=== PATIENT | male | born 1945 | race Caucasian/White ===

== ENCOUNTER 2022-12-06 18:13 | Inpatient (IN) | payer OTHER, SELFPAY ==
[2022-12-06 18:35] VITALS: BP 140/70; PULSE 63; RESP 18; TEMP 36.1; O2SAT 94
[2022-12-06] MEDS: hydrOXYzine HCL 25 MG TABLET PO (21:20)
[2022-12-06] MEDS: traZODone HCL 50 MG TABLET PO (21:20)
[2022-12-06] MEDS: Mirtazapine 15 MG TABLET 45 MG PO (22:41)
[2022-12-06] MEDS: QUEtiapine Fumarate 25 MG TABLET PO (22:41)
[2022-12-06 22:51] VITALS: BMI 29.0
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
--- NOTE | 2022-12-07 05:01 | PC.NURSE ---
HOSPITALIST CONSULT PLACED. TEXT SENT TO DR LARA FOR ROUTINE CONSULT.
[2022-12-07 09:02] VITALS: BP 128/62; PULSE 62; RESP 15; TEMP 36.3; O2SAT 92
[2022-12-07] MEDS: amLODIPine Besylate 10 MG TABLET PO (11:24)
[2022-12-07] MEDS: Cyanocobalamin (Vitamin B-12) 100 MCG TABLET PO (11:24)
[2022-12-07] MEDS: Clopidogrel Bisulfate 75 MG TABLET PO (11:24)
[2022-12-07 11:27] VITALS: BP 125/56; PULSE 68
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
[2022-12-07] MEDS: Metoprolol Succinate ER 100 MG TAB.ER.24H PO (15:05)
[2022-12-07 15:06] VITALS: BP 141/63; PULSE 66
[2022-12-07] MEDS: metFORMIN HCl 500 MG TABLET PO (17:52)
[2022-12-07 18:00] VITALS: BP 120/69; PULSE 74; RESP 18; TEMP 36.1; O2SAT 95
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
[2022-12-07 20:08] LABS: Glucose, Whole Blood 136 mg/dL (60-115)
[2022-12-07] MEDS: QUEtiapine Fumarate 25 MG TABLET 75 MG PO (20:35)
[2022-12-07] MEDS: Mirtazapine 15 MG TABLET 45 MG PO (20:35)
[2022-12-07] MEDS: Tamsulosin HCL 0.4 MG CAPSULE 0.8 MG PO (20:36)
[2022-12-07] MEDS: Salmeterol Xinafoate 50 MCG BLST.W.DEV 1 PUFF INHALE (20:38)
[2022-12-07] MEDS: Acetaminophen 325 MG TABLET 650 MG PO (22:30)
[2022-12-07] MEDS: hydrOXYzine HCL 25 MG TABLET PO (22:31)
[2022-12-07] MEDS: Melatonin 3 MG TABLET 9 MG PO (22:32)
[2022-12-08] MEDS: Omeprazole 40 MG CAPSULE.DR PO (06:41)
[2022-12-08 08:00] LABS: Glucose, Whole Blood 126 mg/dL (60-115)
[2022-12-08 08:17] LABS: Creatinine Clr Calc Pharmacy 56.7; Estimated Glomerular Filt Rate 56
[2022-12-08 08:50] VITALS: BP 115/55; PULSE 65; RESP 18; TEMP 36.4; O2SAT 93
[2022-12-08] MEDS: DULoxetine HCl 20 MG CAPSULE.DR PO (08:58)
[2022-12-08] MEDS: metFORMIN HCl 500 MG TABLET PO ×2 (08:58→16:35)
[2022-12-08] MEDS: Metoprolol Succinate ER 100 MG TAB.ER.24H PO (08:59)
[2022-12-08] MEDS: Clopidogrel Bisulfate 75 MG TABLET PO (08:59)
[2022-12-08] MEDS: amLODIPine Besylate 10 MG TABLET PO (09:00)
[2022-12-08] MEDS: Losartan Potassium 50 MG TABLET 100 MG PO (09:00)
[2022-12-08] MEDS: Cyanocobalamin (Vitamin B-12) 100 MCG TABLET PO (09:00)
[2022-12-08] MEDS: Atorvastatin Calcium 40 MG TABLET PO (09:00)
[2022-12-08] MEDS: Insulin Glargine,Hum.rec.anlog 100 UNIT/ML 10 ML VIAL 8 UNIT SUBCUT (09:01)
[2022-12-08] MEDS: Salmeterol Xinafoate 50 MCG BLST.W.DEV 1 PUFF INHALE ×2 (09:11→21:34)
[2022-12-08] MEDS: polyethylene glycoL 3350 17 GM POWD.PACK PO (09:15)
[2022-12-08] MEDS: Finasteride 5 MG TABLET PO (09:15)
--- NOTE | 2022-12-08 09:30 | HO.PSYCHPN ---
Subjective Subjective Date of Service: 12/08/22 Reason For Visit: Depression Subjective Notes: Conditional Voluntary Interim History: Patient seen and discussed. He repots same as usual when asked how he's doing. He has been adherent to medications. He is complaining of neuropathy pain and restlessness. Denies SI. He needed Melatonin and Hydroxyzine to sleep. Review of Systems Review of Systems General: No fevers, malaise, unintentional weight loss HEENT: No blurred vision, diplopia. No sore throat, nasal congestion, rhinorrhea, sinus pain, ear pain Cardiovascular: No chest pain, palpitations, or leg edema Respiratory: +sob, +cough. No wheezing GI: No abdominal pain, nausea, vomiting, diarrhea, constipation, melena, hematochezia : No dysuria, hematuria, increased urinary frequency, decreased urinary output MSK: No myalgia. +back pain Neuro: No headaches, weakness, paresthesias Skin: No rashes or lesions Mental Status Exam Mental Status Exam Patient Appearance: Appropriate Patient Orientation: Person, Place, Time and Situation Level of Consciousness: Awake, Appropriate and Alert Patient Behavior: Dependent, Cooperative, Restless (legs fidgeting), Anxious and Poor Eye Contact (intermittent) Mood Description: Depressed, Anxious and Sad Affect Description: Constricted, Depressed and Sad Ability to Follow Directions: Good Speech Pattern: Clear, Appropriate, Spontaneous Speech and Coherent Memory Description: Intact Diagnostics Vital Signs (24Hr): Vital Signs - 24 hr 12/07/22 11:27 12/07/22 15:06 12/07/22 18:00 Temperature 97 F Pulse Rate 68 66 74 Respiratory Rate 18 Blood Pressure 125/56 L 141/63 H 120/69 Pulse Oximetry 95 Oxygen Delivery Method Room Air BMI result Body Mass Index 29.0 Labs 12/08/22 07:40 Labs: Laboratory Results - last 48 hr 12/07/22 12/08/22 12/08/22 19:58 07:40 07:55 Creatinine 1.26 Estim Creat Clear Calc 56.7 Estimated GFR 56 POC Glucose 136 H 126 H Medications Medications Current Medications Acetaminophen (Acetaminophen 325 Mg Tablet) 650 mg PO Q6H PRN PRN Reason: Headache/Pain Mild Scale (1-3) Last Admin: 12/07/22 22:30 Dose: 650 mg Al Hydroxide/Mg Hydroxide (Magnesium Hydrox/Alum Hydrox 30 Ml Oral.Susp) 30 ml PO Q6H PRN PRN Reason: Heartburn/Nausea Albuterol Sulfate (Albuterol Sulfate 90 Mcg 8 Gm Inhaler) 2 puff INHALE RQ6H PRN PRN Reason: Wheezing and/or dyspnea Amlodipine Besylate (Amlodipine Besylate 10 Mg Tablet) 10 mg PO DAILY [facility]; Protocol Last Admin: 12/08/22 09:00 Dose: 10 mg Atorvastatin Calcium (Atorvastatin Calcium 40 Mg Tablet) 40 mg PO DAILY [facility] Last Admin: 12/08/22 09:00 Dose: 40 mg Clopidogrel Bisulfate (Clopidogrel Bisulfate 75 Mg Tablet) 75 mg PO DAILY [facility] Last Admin: 12/08/22 08:59 Dose: 75 mg Cyanocobalamin (Cyanocobalamin (Vitamin B-12) 100 Mcg Tablet) 100 mcg PO DAILY [facility] Last Admin: 12/08/22 09:00 Dose: 100 mcg Docusate Sodium (Docusate Sodium 100 Mg Capsule) 300 mg PO DAILY PRN PRN Reason: constipation Duloxetine HCl (Duloxetine Hcl 20 Mg Capsule.Dr) 20 mg PO DAILY [facility] Last Admin: 12/08/22 08:58 Dose: 20 mg Finasteride (Finasteride 5 Mg Tablet) 5 mg PO DAILY [facility] Last Admin: 12/08/22 09:15 Dose: 5 mg Glucose (Glucose Gel 15 Gm Gel..Gram.) 15 gm PO Q15M PRN; Protocol PRN Reason: per Hypoglycemia Standing Ord. Hydroxyzine HCl (Hydroxyzine Hcl 25 Mg Tablet) 25 mg PO Q6H PRN PRN Reason: Anxiety Last Admin: 12/07/22 22:31 Dose: 25 mg Dextrose (D10) 250 mls @ 750 mls/hr IV Q15M PRN; Protocol PRN Reason: per Hypoglycemia Standing Ord. Insulin Glargine (Insulin Glargine,Hum.Rec.Anlog 100 Unit/Ml 10 Ml Vial) 8 unit SUBCUT DAILY [facility] Last Admin: 12/08/22 09:01 Dose: 8 unit Insulin Human Lispro (Insulin Lispro 100 Unit/Ml 3 Ml Vial) 0 unit SUBCUT QIDACHS [facility]; Protocol Last Admin: 12/08/22 08:56 Dose: Not Given Lidocaine (Lidocaine 4 % Patch Adh..Patch) 1 patch TRANSDERMA DAILY [facility]; Protocol Last Admin: 12/08/22 09:03 Dose: Not Given Losartan Potassium (Losartan Potassium 50 Mg Tablet) 100 mg PO DAILY [facility]; Protocol Last Admin: 12/08/22 09:00 Dose: 100 mg Magnesium Hydroxide (Milk Of Magnesia 30 Ml Oral.Susp) 30 ml PO DAILY PRN PRN Reason: Constipation Melatonin (Melatonin 3 Mg Tablet) 9 mg PO BEDTIME PRN PRN Reason: Insomnia Last Admin: 12/07/22 22:32 Dose: 9 mg Metformin HCl (Metformin Hcl 500 Mg Tablet) 500 mg PO BIDWM [facility] Last Admin: 12/08/22 08:58 Dose: 500 mg Metoprolol Succinate (Metoprolol Succinate Er 100 Mg Tab.Er.24h) 100 mg PO DAILY [facility]; Protocol Last Admin: 12/08/22 08:59 Dose: 100 mg Mirtazapine (Mirtazapine 15 Mg Tablet) 45 mg PO BEDTIME [facility] Last Admin: 12/07/22 20:35 Dose: 45 mg Nicotine Polacrilex (Nicotine Polacrilex 2 Mg Gum) 4 mg BUCCAL Q2H PRN PRN Reason: Nicotine Cravings Omeprazole (Omeprazole 40 Mg Capsule.Dr) 40 mg PO DAILY@0630 [facility] Last Admin: 12/08/22 06:41 Dose: 40 mg Polyethylene Glycol (Polyethylene Glycol 3350 17 Gm Powd.Pack) 17 gm PO DAILY [facility] Last Admin: 12/08/22 09:15 Dose: 17 gm Quetiapine Fumarate (Quetiapine Fumarate 25 Mg Tablet) 75 mg PO BEDTIME [facility] Last Admin: 12/07/22 20:35 Dose: 75 mg Salmeterol Xinafoate (Salmeterol Xinafoate 50 Mcg Blst.W.Dev) 1 puff INHALE RBID [facility] Last Admin: 12/08/22 09:11 Dose: 1 puff Tamsulosin HCl (Tamsulosin Hcl 0.4 Mg Capsule) 0.8 mg PO BEDTIME [facility] Last Admin: 12/07/22 20:36 Dose: 0.8 mg Tiotropium [place] (Tiotropium [place] 18 Mcg Cap.W.Dev) 1 puff INHALE RDAILY [facility] Trazodone HCl (Trazodone Hcl 50 Mg Tablet) 50 mg PO BEDTIME MRX1 PRN PRN Reason: Insomnia Last Admin: 12/06/22 21:20 Dose: 50 mg Allergies Allergies Allergy/AdvReac Type Severity Reaction Status Date / Time iodine Allergy Swelling Verified 12/06/22 22:57 levofloxacin [From Levaquin] Allergy Joint Pain Verified 12/06/22 22:36 povidone-iodine Allergy Swelling Verified 12/06/22 22:57 [From Betadine] Assessment & Plan Assessment & Plan (1) Depression, major, severe recurrence: Status: Acute Code(s): F33.2 - Major depressive disorder, recurrent severe without psychotic features Assessment and Plan: 77 yo male with history of recurrent depression admitted with suicidal ideation with a plan to access firearms to kill himself. He has been struggling with medical issues, housing, difficulty navigating social needs and medical conditions due to illiteracy. His Cymbalta was discontinued due to Low Na+ but that didn't resolve after discontinuation. Plan Admit to geripsychiatry unit. CV 15 min checks Milieu therapy Collaterals Restart Cymbalta and titrate as tolerated. Patient agrees. Discharge planning. 12/08: Start GBP 100 mg TID targeting peripheral neuropathy Reason for continued inpatient stay Substantial Risk for: harm to self, rapid decompensation and med/psych decompensation Time Spent With Patient Time: Total time managing care of this patient today ____ minutes.
[2022-12-08] MEDS: Insulin Lispro 100 UNIT/ML 3 ML VIAL SUBCUT (11:34)
[2022-12-08] MEDS: Clotrimazole 1 % Cream 15 GM TUBE 1 APPL TOPICAL (15:37)
[2022-12-08] MEDS: Gabapentin 100 MG CAPSULE PO ×2 (15:37→21:21)
[2022-12-08 16:40] LABS: Glucose, Whole Blood 129 mg/dL (60-115)
[2022-12-08 16:40] LABS: Glucose, Whole Blood 184 mg/dL (60-115)
[2022-12-08 18:00] VITALS: BP 120/65; PULSE 66; RESP 18; TEMP 36.1; O2SAT 97
[2022-12-08] MEDS: Melatonin 3 MG TABLET 9 MG PO (21:19)
[2022-12-08] MEDS: QUEtiapine Fumarate 25 MG TABLET 75 MG PO (21:20)
[2022-12-08] MEDS: hydrOXYzine HCL 25 MG TABLET PO (21:21)
[2022-12-08] MEDS: Tamsulosin HCL 0.4 MG CAPSULE 0.8 MG PO (21:22)
[2022-12-08] MEDS: Mirtazapine 15 MG TABLET 45 MG PO (21:22)
[2022-12-09] MEDS: Omeprazole 40 MG CAPSULE.DR PO (05:53)
[2022-12-09 07:44] LABS: Glucose, Whole Blood 131 mg/dL (60-115)
[2022-12-09] MEDS: Insulin Glargine,Hum.rec.anlog 100 UNIT/ML 10 ML VIAL 8 UNIT SUBCUT (08:21)
[2022-12-09] MEDS: Cyanocobalamin (Vitamin B-12) 100 MCG TABLET PO (08:24)
[2022-12-09] MEDS: metFORMIN HCl 500 MG TABLET PO ×2 (08:24→16:38)
[2022-12-09] MEDS: amLODIPine Besylate 10 MG TABLET PO (08:24)
[2022-12-09] MEDS: Clopidogrel Bisulfate 75 MG TABLET PO (08:24)
[2022-12-09] MEDS: Losartan Potassium 50 MG TABLET 100 MG PO (08:24)
[2022-12-09] MEDS: Metoprolol Succinate ER 100 MG TAB.ER.24H PO (08:24)
[2022-12-09] MEDS: Gabapentin 100 MG CAPSULE PO ×3 (08:24→20:55)
[2022-12-09] MEDS: DULoxetine HCl 20 MG CAPSULE.DR PO (08:24)
[2022-12-09] MEDS: Atorvastatin Calcium 40 MG TABLET PO (08:24)
[2022-12-09] MEDS: Finasteride 5 MG TABLET PO (08:25)
[2022-12-09] MEDS: polyethylene glycoL 3350 17 GM POWD.PACK PO (08:28)
[2022-12-09] MEDS: Salmeterol Xinafoate 50 MCG BLST.W.DEV 1 PUFF INHALE ×2 (08:40→20:54)
[2022-12-09] MEDS: Lidocaine 4 % Patch ADH..PATCH 1 PATCH TRANSDERMA (08:40)
[2022-12-09 08:43] VITALS: BP 110/52; PULSE 87; RESP 18; TEMP 35.8; O2SAT 96
[2022-12-09 11:24] LABS: Glucose, Whole Blood 162 mg/dL (60-115)
[2022-12-09] MEDS: Insulin Lispro 100 UNIT/ML 3 ML VIAL SUBCUT ×2 (11:43→21:05)
--- NOTE | 2022-12-09 12:40 | MHC.CLN ---
Addendum entered by Angella Blanco RD 12/09/22 14:25: DIET CHANGED TO REGULAR CONSISTENCY PER MD. Original Note: NUTRITION DIET=REGULAR, NDD3 CONSISTENCY. PATIENT STATED THAT TOP DENTURES DON'T FIT WELL AND NO TEETH/DENTURES ON BOTTOM. DISPLEASED WITH LUNCH TODAY. ALERTED NURSE THAT PATIENT WANTED REGULAR SOUP AND A SANDWICH. STATED, I'LL STARVE TO IF DOESN'T GET THAT. FOLLOW FOR DIET TOLERANCE AND INTAKE.
[2022-12-09] MEDS: Clotrimazole 1 % Cream 15 GM TUBE 1 APPL TOPICAL ×2 (13:19→20:57)
--- NOTE | 2022-12-09 13:39 | HO.PSYCHPN ---
Subjective Subjective Date of Service: 12/09/22 Reason For Visit: Depression Subjective Notes: Conditional Voluntary Interim History: The nursing staff reported the patient had been very dysphoric, with passive suicidal ideation but able to contract for safety. The occupational therapist reported that he scored 18/30 on the Alligator but he is easily treated. The clinical social worker reported the [facility] facility does not want him back. On interview the patient reports that his feeling depressed we discussed options and content agreed to continue with medications. He is able to contract for safety he Mental Status Exam Mental Status Exam Patient Appearance: Appropriate Patient Orientation: Person and Situation Level of Consciousness: Awake and Appropriate Patient Behavior: Guarded and Passive Mood Description: Withdrawn Affect Description: Constricted and Depressed Patient Cognition Impaired: Yes Ability to Follow Directions: Good Speech Pattern: Impoverished Hallucinations: None Delusions: Not Present Thought Process: Linear Thought Content: positive for [place] and positive for Circumstantial Judgement: Fair Diagnostics Vital Signs (24Hr): Vital Signs - 24 hr 12/08/22 18:00 12/09/22 08:43 Temperature 96.9 F 96.5 F L Pulse Rate 66 87 Respiratory Rate 18 18 Blood Pressure 120/65 110/52 L Pulse Oximetry 97 96 Oxygen Delivery Method Room Air Room Air BMI result Body Mass Index 29.0 Labs 12/08/22 07:40 Labs: Laboratory Results - last 48 hr 12/07/22 12/08/22 12/08/22 19:58 07:40 07:55 Creatinine 1.26 Estim Creat Clear Calc 56.7 Estimated GFR 56 POC Glucose 136 H 126 H 12/08/22 12/08/22 12/09/22 11:11 16:26 07:39 Creatinine Estim Creat Clear Calc Estimated GFR POC Glucose 184 H 129 H 131 H 12/09/22 11:17 Creatinine Estim Creat Clear Calc Estimated GFR POC Glucose 162 H Medications Medications Current Medications Acetaminophen (Acetaminophen 325 Mg Tablet) 650 mg PO Q6H PRN PRN Reason: Headache/Pain Mild Scale (1-3) Last Admin: 12/07/22 22:30 Dose: 650 mg Al Hydroxide/Mg Hydroxide (Magnesium Hydrox/Alum Hydrox 30 Ml Oral.Susp) 30 ml PO Q6H PRN PRN Reason: Heartburn/Nausea Albuterol Sulfate (Albuterol Sulfate 90 Mcg 8 Gm Inhaler) 2 puff INHALE RQ6H PRN PRN Reason: Wheezing and/or dyspnea Amlodipine Besylate (Amlodipine Besylate 10 Mg Tablet) 10 mg PO DAILY [facility]; Protocol Last Admin: 12/09/22 08:24 Dose: 10 mg Atorvastatin Calcium (Atorvastatin Calcium 40 Mg Tablet) 40 mg PO DAILY [facility] Last Admin: 12/09/22 08:24 Dose: 40 mg Clopidogrel Bisulfate (Clopidogrel Bisulfate 75 Mg Tablet) 75 mg PO DAILY [facility] Last Admin: 12/09/22 08:24 Dose: 75 mg Clotrimazole (Clotrimazole 1 % Cream 15 Gm Tube) 1 appl TOPICAL BID [facility]; Protocol Last Admin: 12/09/22 13:19 Dose: 1 appl Cyanocobalamin (Cyanocobalamin (Vitamin B-12) 100 Mcg Tablet) 100 mcg PO DAILY [facility] Last Admin: 12/09/22 08:24 Dose: 100 mcg Docusate Sodium (Docusate Sodium 100 Mg Capsule) 300 mg PO DAILY PRN PRN Reason: constipation Duloxetine HCl (Duloxetine Hcl 20 Mg Capsule.Dr) 20 mg PO DAILY [facility] Last Admin: 12/09/22 08:24 Dose: 20 mg Finasteride (Finasteride 5 Mg Tablet) 5 mg PO DAILY [facility] Last Admin: 12/09/22 08:25 Dose: 5 mg Gabapentin (Gabapentin 100 Mg Capsule) 100 mg PO TID [facility] Last Admin: 12/09/22 08:24 Dose: 100 mg Glucose (Glucose Gel 15 Gm Gel..Gram.) 15 gm PO Q15M PRN; Protocol PRN Reason: per Hypoglycemia Standing Ord. Hydroxyzine HCl (Hydroxyzine Hcl 25 Mg Tablet) 25 mg PO Q6H PRN PRN Reason: Anxiety Last Admin: 12/07/22 22:31 Dose: 25 mg Hydroxyzine HCl (Hydroxyzine Hcl 25 Mg Tablet) 25 mg PO BEDTIME [facility] Last Admin: 12/08/22 21:21 Dose: 25 mg Dextrose (D10) 250 mls @ 750 mls/hr IV Q15M PRN; Protocol PRN Reason: per Hypoglycemia Standing Ord. Insulin Glargine (Insulin Glargine,Hum.Rec.Anlog 100 Unit/Ml 10 Ml Vial) 8 unit SUBCUT DAILY [facility] Last Admin: 12/09/22 08:21 Dose: 8 unit Insulin Human Lispro (Insulin Lispro 100 Unit/Ml 3 Ml Vial) 0 unit SUBCUT QIDACHS [facility]; Protocol Last Admin: 12/09/22 11:43 Dose: 2 unit Lidocaine (Lidocaine 4 % Patch Adh..Patch) 1 patch TRANSDERMA DAILY [facility]; Protocol Last Admin: 12/09/22 08:40 Dose: 1 patch Losartan Potassium (Losartan Potassium 50 Mg Tablet) 100 mg PO DAILY [facility]; Protocol Last Admin: 12/09/22 08:24 Dose: 100 mg Magnesium Hydroxide (Milk Of Magnesia 30 Ml Oral.Susp) 30 ml PO DAILY PRN PRN Reason: Constipation Melatonin (Melatonin 3 Mg Tablet) 9 mg PO BEDTIME [facility] Last Admin: 12/08/22 21:19 Dose: 9 mg Metformin HCl (Metformin Hcl 500 Mg Tablet) 500 mg PO BIDWM [facility] Last Admin: 12/09/22 08:24 Dose: 500 mg Metoprolol Succinate (Metoprolol Succinate Er 100 Mg Tab.Er.24h) 100 mg PO DAILY [facility]; Protocol Last Admin: 12/09/22 08:24 Dose: 100 mg Mirtazapine (Mirtazapine 15 Mg Tablet) 45 mg PO BEDTIME [facility] Last Admin: 12/08/22 21:22 Dose: 45 mg Nicotine Polacrilex (Nicotine Polacrilex 2 Mg Gum) 4 mg BUCCAL Q2H PRN PRN Reason: Nicotine Cravings Omeprazole (Omeprazole 40 Mg Capsule.Dr) 40 mg PO DAILY@0630 [facility] Last Admin: 12/09/22 05:53 Dose: 40 mg Polyethylene Glycol (Polyethylene Glycol 3350 17 Gm Powd.Pack) 17 gm PO DAILY [facility] Last Admin: 12/09/22 08:28 Dose: 17 gm Quetiapine Fumarate (Quetiapine Fumarate 25 Mg Tablet) 75 mg PO BEDTIME [facility] Last Admin: 12/08/22 21:20 Dose: 75 mg Salmeterol Xinafoate (Salmeterol Xinafoate 50 Mcg Blst.W.Dev) 1 puff INHALE RBID [facility] Last Admin: 12/09/22 08:40 Dose: 1 puff Tamsulosin HCl (Tamsulosin Hcl 0.4 Mg Capsule) 0.8 mg PO BEDTIME [facility] Last Admin: 12/08/22 21:22 Dose: 0.8 mg Tiotropium [place] (Tiotropium [place] 18 Mcg Cap.W.Dev) 1 puff INHALE RDAILY [facility] Last Admin: 05/01/23 08:25 Dose: 1 puff Trazodone HCl (Trazodone Hcl 50 Mg Tablet) 50 mg PO BEDTIME MRX1 PRN PRN Reason: Insomnia Last Admin: 12/06/22 21:20 Dose: 50 mg Allergies Allergies Allergy/AdvReac Type Severity Reaction Status Date / Time iodine Allergy Swelling Verified 12/06/22 22:57 levofloxacin [From Levaquin] Allergy Joint Pain Verified 12/06/22 22:36 povidone-iodine Allergy Swelling Verified 12/06/22 22:57 [From Betadine] Assessment & Plan Assessment & Plan (1) Depression, major, severe recurrence: Status: Acute Code(s): F33.2 - Major depressive disorder, recurrent severe without psychotic features Assessment and Plan: 77 yo male with history of recurrent depression admitted with suicidal ideation with a plan to access firearms to kill himself. He has been struggling with medical issues, housing, difficulty navigating social needs and medical conditions due to illiteracy. His Cymbalta was discontinued due to Low Na+ but that didn't resolve after discontinuation. Plan Admit to geripsychiatry unit. CV 15 min checks Milieu therapy Collaterals Restart Cymbalta and titrate as tolerated. Patient agrees. Discharge planning. 12/08: Start GBP 100 mg TID targeting peripheral neuropathy Plan 1. Gather collateral information. 2. Continue a panty 100 mg p.o. t.i.d. since he is not over-sedated. 3. Keep Cymbalta 20 mg p.o. daily, will increase it up to 30 in a couple of days Reason for continued inpatient stay Substantial Risk for: harm to self, inability to function, rapid decompensation and med/psych decompensation Time Spent With Patient Time: Total time managing care of this patient today __20__ minutes.
[2022-12-09 16:41] LABS: Glucose, Whole Blood 157 mg/dL (60-115)
[2022-12-09 19:57] VITALS: BP 136/76; PULSE 71; RESP 18; TEMP 36.1; O2SAT 95
[2022-12-09] MEDS: Mirtazapine 15 MG TABLET 45 MG PO (20:54)
[2022-12-09] MEDS: QUEtiapine Fumarate 25 MG TABLET 75 MG PO (20:55)
[2022-12-09] MEDS: Tamsulosin HCL 0.4 MG CAPSULE 0.8 MG PO (20:55)
[2022-12-09] MEDS: Melatonin 3 MG TABLET 9 MG PO (20:55)
[2022-12-09] MEDS: hydrOXYzine HCL 25 MG TABLET PO (20:55)
[2022-12-09 21:02] LABS: Glucose, Whole Blood 161 mg/dL (60-115)
[2022-12-10] MEDS: Omeprazole 40 MG CAPSULE.DR PO (05:54)
[2022-12-10 08:10] LABS: Glucose, Whole Blood 137 mg/dL (60-115)
[2022-12-10 09:00] VITALS: BP 116/63; PULSE 71; RESP 20; TEMP 36.3; O2SAT 96
[2022-12-10] MEDS: Gabapentin 100 MG CAPSULE PO ×3 (09:05→20:53)
[2022-12-10] MEDS: Metoprolol Succinate ER 100 MG TAB.ER.24H PO (09:05)
[2022-12-10] MEDS: Clopidogrel Bisulfate 75 MG TABLET PO (09:06)
[2022-12-10] MEDS: amLODIPine Besylate 10 MG TABLET PO (09:06)
[2022-12-10] MEDS: Atorvastatin Calcium 40 MG TABLET PO (09:06)
[2022-12-10] MEDS: DULoxetine HCl 20 MG CAPSULE.DR PO (09:06)
[2022-12-10] MEDS: metFORMIN HCl 500 MG TABLET PO ×2 (09:07→16:36)
[2022-12-10] MEDS: Cyanocobalamin (Vitamin B-12) 100 MCG TABLET PO (09:07)
[2022-12-10] MEDS: Losartan Potassium 50 MG TABLET 100 MG PO (09:07)
[2022-12-10] MEDS: Lidocaine 4 % Patch ADH..PATCH 1 PATCH TRANSDERMA ×2 (09:08→11:12)
[2022-12-10] MEDS: polyethylene glycoL 3350 17 GM POWD.PACK PO (09:09)
[2022-12-10] MEDS: Finasteride 5 MG TABLET PO (09:10)
[2022-12-10] MEDS: Insulin Glargine,Hum.rec.anlog 100 UNIT/ML 10 ML VIAL 8 UNIT SUBCUT (09:11)
[2022-12-10] MEDS: Salmeterol Xinafoate 50 MCG BLST.W.DEV 1 PUFF INHALE ×2 (10:28→20:50)
[2022-12-10] MEDS: Clotrimazole 1 % Cream 15 GM TUBE 1 APPL TOPICAL ×2 (10:28→20:53)
[2022-12-10 11:34] LABS: Glucose, Whole Blood 175 mg/dL (60-115)
[2022-12-10] MEDS: Insulin Lispro 100 UNIT/ML 3 ML VIAL SUBCUT ×2 (11:46→16:36)
--- NOTE | 2022-12-10 15:01 | HO.PSYCHPN ---
Subjective Subjective Date of Service: 12/10/22 Reason For Visit: Depression Subjective Notes: Conditional Voluntary Interim History: The nursing staff reported the patient had been irritable, his point of care was 161 and received 2 units of insulin later he refused the medication. He has a rash in his left axilla. He has been resting in his bed and he has been out only for TV later in the afternoon. He refused to take a shower yesterday. Yesterday had a long conversation with Dr. Stewart, he his outpatient psychiatrist stating that he was fairly stable on Cymbalta but he was hyponatremic so that is why they did stop it. We rechallenge in Cymbalta and we will follow. On interview the patient reports depression and anxiety Mental Status Exam Mental Status Exam Patient Appearance: Appropriate Patient Orientation: Person and Situation Level of Consciousness: Awake and Appropriate Patient Behavior: Guarded and Passive Mood Description: Withdrawn Affect Description: Constricted Patient Cognition Impaired: Yes Ability to Follow Directions: Good Speech Pattern: Clear Hallucinations: None Delusions: Not Present Thought Process: Distracted and Slowed Thinking Thought Content: positive for [place] Judgement: Poor Diagnostics Vital Signs (24Hr): Vital Signs - 24 hr 12/09/22 19:57 12/10/22 09:00 Temperature 96.9 F 97.4 F Pulse Rate 71 71 Respiratory Rate 18 20 Blood Pressure 136/76 116/63 Pulse Oximetry 95 96 Oxygen Delivery Method Room Air Room Air BMI result Body Mass Index 29.0 Labs 12/08/22 07:40 Labs: Laboratory Results - last 48 hr 12/08/22 12/08/22 12/09/22 11:11 16:26 07:39 POC Glucose 184 H 129 H 131 H 12/09/22 12/09/22 12/09/22 11:17 16:36 20:52 POC Glucose 162 H 157 H 161 H 12/10/22 12/10/22 07:59 11:15 POC Glucose 137 H 175 H Medications Medications Current Medications Acetaminophen (Acetaminophen 325 Mg Tablet) 650 mg PO Q6H PRN PRN Reason: Headache/Pain Mild Scale (1-3) Last Admin: 12/07/22 22:30 Dose: 650 mg Al Hydroxide/Mg Hydroxide (Magnesium Hydrox/Alum Hydrox 30 Ml Oral.Susp) 30 ml PO Q6H PRN PRN Reason: Heartburn/Nausea Albuterol Sulfate (Albuterol Sulfate 90 Mcg 8 Gm Inhaler) 2 puff INHALE RQ6H PRN PRN Reason: Wheezing and/or dyspnea Amlodipine Besylate (Amlodipine Besylate 10 Mg Tablet) 10 mg PO DAILY [facility]; Protocol Last Admin: 12/10/22 09:06 Dose: 10 mg Atorvastatin Calcium (Atorvastatin Calcium 40 Mg Tablet) 40 mg PO DAILY [facility] Last Admin: 12/10/22 09:06 Dose: 40 mg Clopidogrel Bisulfate (Clopidogrel Bisulfate 75 Mg Tablet) 75 mg PO DAILY [facility] Last Admin: 12/10/22 09:06 Dose: 75 mg Clotrimazole (Clotrimazole 1 % Cream 15 Gm Tube) 1 appl TOPICAL BID [facility]; Protocol Last Admin: 12/10/22 10:28 Dose: 1 appl Cyanocobalamin (Cyanocobalamin (Vitamin B-12) 100 Mcg Tablet) 100 mcg PO DAILY [facility] Last Admin: 12/10/22 09:07 Dose: 100 mcg Docusate Sodium (Docusate Sodium 100 Mg Capsule) 300 mg PO DAILY PRN PRN Reason: constipation Duloxetine HCl (Duloxetine Hcl 20 Mg Capsule.Dr) 20 mg PO DAILY [facility] Last Admin: 12/10/22 09:06 Dose: 20 mg Finasteride (Finasteride 5 Mg Tablet) 5 mg PO DAILY [facility] Last Admin: 12/10/22 09:10 Dose: 5 mg Gabapentin (Gabapentin 100 Mg Capsule) 100 mg PO TID [facility] Last Admin: 12/10/22 14:57 Dose: 100 mg Glucose (Glucose Gel 15 Gm Gel..Gram.) 15 gm PO Q15M PRN; Protocol PRN Reason: per Hypoglycemia Standing Ord. Hydroxyzine HCl (Hydroxyzine Hcl 25 Mg Tablet) 25 mg PO Q6H PRN PRN Reason: Anxiety Last Admin: 12/07/22 22:31 Dose: 25 mg Hydroxyzine HCl (Hydroxyzine Hcl 25 Mg Tablet) 25 mg PO BEDTIME [facility] Last Admin: 12/09/22 20:55 Dose: 25 mg Dextrose (D10) 250 mls @ 750 mls/hr IV Q15M PRN; Protocol PRN Reason: per Hypoglycemia Standing Ord. Insulin Glargine (Insulin Glargine,Hum.Rec.Anlog 100 Unit/Ml 10 Ml Vial) 8 unit SUBCUT DAILY [facility] Last Admin: 12/10/22 09:11 Dose: 8 unit Insulin Human Lispro (Insulin Lispro 100 Unit/Ml 3 Ml Vial) 0 unit SUBCUT QIDACHS [facility]; Protocol Last Admin: 12/10/22 11:46 Dose: 2 unit Lidocaine (Lidocaine 4 % Patch Adh..Patch) 1 patch TRANSDERMA DAILY [facility]; Protocol Last Admin: 12/10/22 09:08 Dose: 1 patch Lidocaine (Lidocaine 4 % Patch Adh..Patch) 1 patch TRANSDERMA DAILY [facility]; Protocol Last Admin: 12/10/22 11:12 Dose: 1 patch Losartan Potassium (Losartan Potassium 50 Mg Tablet) 100 mg PO DAILY [facility]; Protocol Last Admin: 12/10/22 09:07 Dose: 100 mg Magnesium Hydroxide (Milk Of Magnesia 30 Ml Oral.Susp) 30 ml PO DAILY PRN PRN Reason: Constipation Melatonin (Melatonin 3 Mg Tablet) 9 mg PO BEDTIME [facility] Last Admin: 12/09/22 20:55 Dose: 9 mg Metformin HCl (Metformin Hcl 500 Mg Tablet) 500 mg PO BIDWM [facility] Last Admin: 12/10/22 09:07 Dose: 500 mg Metoprolol Succinate (Metoprolol Succinate Er 100 Mg Tab.Er.24h) 100 mg PO DAILY [facility]; Protocol Last Admin: 12/10/22 09:05 Dose: 100 mg Mirtazapine (Mirtazapine 15 Mg Tablet) 45 mg PO BEDTIME [facility] Last Admin: 12/09/22 20:54 Dose: 45 mg Nicotine Polacrilex (Nicotine Polacrilex 2 Mg Gum) 4 mg BUCCAL Q2H PRN PRN Reason: Nicotine Cravings Omeprazole (Omeprazole 40 Mg Capsule.Dr) 40 mg PO DAILY@0630 [facility] Last Admin: 12/10/22 05:54 Dose: 40 mg Polyethylene Glycol (Polyethylene Glycol 3350 17 Gm Powd.Pack) 17 gm PO DAILY [facility] Last Admin: 12/10/22 09:09 Dose: 17 gm Quetiapine Fumarate (Quetiapine Fumarate 25 Mg Tablet) 75 mg PO BEDTIME [facility] Last Admin: 12/09/22 20:55 Dose: 75 mg Salmeterol Xinafoate (Salmeterol Xinafoate 50 Mcg Blst.W.Dev) 1 puff INHALE RBID [facility] Last Admin: 12/10/22 10:28 Dose: 1 puff Tamsulosin HCl (Tamsulosin Hcl 0.4 Mg Capsule) 0.8 mg PO BEDTIME [facility] Last Admin: 12/09/22 20:55 Dose: 0.8 mg Tiotropium [place] (Tiotropium [place] 18 Mcg Cap.W.Dev) 1 puff INHALE RDAILY [facility] Last Admin: 12/10/22 09:38 Dose: 1 puff Trazodone HCl (Trazodone Hcl 50 Mg Tablet) 50 mg PO BEDTIME MRX1 PRN PRN Reason: Insomnia Last Admin: 12/06/22 21:20 Dose: 50 mg Allergies Allergies Allergy/AdvReac Type Severity Reaction Status Date / Time iodine Allergy Swelling Verified 12/06/22 22:57 levofloxacin [From Levaquin] Allergy Joint Pain Verified 12/06/22 22:36 povidone-iodine Allergy Swelling Verified 12/06/22 22:57 [From Betadine] Assessment & Plan Assessment & Plan (1) Depression, major, severe recurrence: Status: Acute Code(s): F33.2 - Major depressive disorder, recurrent severe without psychotic features Assessment and Plan: 77 yo male with history of recurrent depression admitted with suicidal ideation with a plan to access firearms to kill himself. He has been struggling with medical issues, housing, difficulty navigating social needs and medical conditions due to illiteracy. His Cymbalta was discontinued due to Low Na+ but that didn't resolve after discontinuation. Plan Admit to geripsychiatry unit. CV 15 min checks Milieu therapy Collaterals Restart Cymbalta and titrate as tolerated. Patient agrees. Discharge planning. 12/08: Start GBP 100 mg TID targeting peripheral neuropathy Plan 1. Gather collateral information. 2. Continue a panty 100 mg p.o. t.i.d. since he is not over-sedated. 3. Keep Cymbalta 20 mg p.o. daily, will increase it up to 30 in a couple of days Reason for continued inpatient stay Substantial Risk for: inability to function, rapid decompensation and med/psych decompensation Time Spent With Patient Time: Total time managing care of this patient today __20__ minutes.
[2022-12-10 16:26] LABS: Glucose, Whole Blood 183 mg/dL (60-115)
[2022-12-10 18:00] VITALS: BP 120/58; PULSE 60; RESP 18; TEMP 37.1; O2SAT 94
[2022-12-10] MEDS: QUEtiapine Fumarate 25 MG TABLET 75 MG PO (20:54)
[2022-12-10] MEDS: hydrOXYzine HCL 25 MG TABLET PO (20:54)
[2022-12-10] MEDS: Tamsulosin HCL 0.4 MG CAPSULE 0.8 MG PO (20:54)
[2022-12-10] MEDS: Mirtazapine 15 MG TABLET 45 MG PO (20:54)
[2022-12-10] MEDS: Melatonin 3 MG TABLET 9 MG PO (20:54)
[2022-12-10 21:19] LABS: Glucose, Whole Blood 112 mg/dL (60-115)
[2022-12-11] MEDS: Omeprazole 40 MG CAPSULE.DR PO (05:51)
[2022-12-11 08:09] LABS: Glucose, Whole Blood 128 mg/dL (60-115)
[2022-12-11] MEDS: Finasteride 5 MG TABLET PO (08:13)
[2022-12-11] MEDS: Losartan Potassium 50 MG TABLET 100 MG PO (08:13)
[2022-12-11] MEDS: metFORMIN HCl 500 MG TABLET PO ×2 (08:14→16:26)
[2022-12-11 08:15] VITALS: BP 127/61; PULSE 66; RESP 20; TEMP 36.2; O2SAT 94
[2022-12-11] MEDS: Clopidogrel Bisulfate 75 MG TABLET PO (08:15)
[2022-12-11] MEDS: Metoprolol Succinate ER 100 MG TAB.ER.24H PO (08:16)
[2022-12-11] MEDS: DULoxetine HCl 20 MG CAPSULE.DR PO (08:16)
[2022-12-11] MEDS: Cyanocobalamin (Vitamin B-12) 100 MCG TABLET PO (08:16)
[2022-12-11] MEDS: amLODIPine Besylate 10 MG TABLET PO (08:16)
[2022-12-11] MEDS: Atorvastatin Calcium 40 MG TABLET PO (08:16)
[2022-12-11] MEDS: Gabapentin 100 MG CAPSULE PO ×3 (08:17→21:02)
[2022-12-11] MEDS: Insulin Glargine,Hum.rec.anlog 100 UNIT/ML 10 ML VIAL 8 UNIT SUBCUT (08:17)
--- NOTE | 2022-12-11 08:18 | P.PNPSI_ITS ---
Subjective Subjective Date of Service: 12/11/22 Reason For Visit: Depression Subjective Notes: Conditional Voluntary Interim History: The nursing staff reported the patient had been compliant with treatment, he has refused insulin at times. He was seen in the common areas and minimally social. On interview we discussed his treatment options, explain the Dr. Armenta called as and reported that he was hyponatremic most likely to Cymbalta but when he discontinue Cymbalta he decompensated. He agreed on the plan of titrate impact Cymbalta, currently at 20 mg daily. We will do blood work tomorrow. Mental Status Exam Mental Status Exam Patient Appearance: Appropriate Patient Orientation: Person and Situation Level of Consciousness: Awake Patient Behavior: Guarded and Passive Mood Description: Withdrawn and Depressed Affect Description: Constricted Patient Cognition Impaired: Yes Ability to Follow Directions: Good Speech Pattern: Clear Hallucinations: None Delusions: Not Present Thought Process: Linear Thought Content: positive for [place] and positive for [place] Judgement: Fair Diagnostics Vital Signs (24Hr): Vital Signs - 24 hr 12/10/22 09:00 12/10/22 18:00 Temperature 97.4 F 98.8 F Pulse Rate 71 60 Respiratory Rate 20 18 Blood Pressure 116/63 120/58 L Pulse Oximetry 96 94 Oxygen Delivery Method Room Air Room Air BMI result Body Mass Index 29.0 Labs 12/08/22 07:40 Labs: Laboratory Results - last 48 hr 12/09/22 12/09/22 12/09/22 11:17 16:36 20:52 POC Glucose 162 H 157 H 161 H 12/10/22 12/10/22 12/10/22 07:59 11:15 16:18 POC Glucose 137 H 175 H 183 H 12/10/22 12/11/22 20:52 07:43 POC Glucose 112 128 H Medications Medications Current Medications Acetaminophen (Acetaminophen 325 Mg Tablet) 650 mg PO Q6H PRN PRN Reason: Headache/Pain Mild Scale (1-3) Last Admin: 12/07/22 22:30 Dose: 650 mg Al Hydroxide/Mg Hydroxide (Magnesium Hydrox/Alum Hydrox 30 Ml Oral.Susp) 30 ml PO Q6H PRN PRN Reason: Heartburn/Nausea Albuterol Sulfate (Albuterol Sulfate 90 Mcg 8 Gm Inhaler) 2 puff INHALE RQ6H PRN PRN Reason: Wheezing and/or dyspnea Amlodipine Besylate (Amlodipine Besylate 10 Mg Tablet) 10 mg PO DAILY [facility]; Protocol Last Admin: 12/10/22 09:06 Dose: 10 mg Atorvastatin Calcium (Atorvastatin Calcium 40 Mg Tablet) 40 mg PO DAILY [facility] Last Admin: 12/10/22 09:06 Dose: 40 mg Clopidogrel Bisulfate (Clopidogrel Bisulfate 75 Mg Tablet) 75 mg PO DAILY [facility] Last Admin: 12/10/22 09:06 Dose: 75 mg Clotrimazole (Clotrimazole 1 % Cream 15 Gm Tube) 1 appl TOPICAL BID [facility]; Protocol Last Admin: 12/10/22 20:53 Dose: 1 appl Cyanocobalamin (Cyanocobalamin (Vitamin B-12) 100 Mcg Tablet) 100 mcg PO DAILY [facility] Last Admin: 12/10/22 09:07 Dose: 100 mcg Docusate Sodium (Docusate Sodium 100 Mg Capsule) 300 mg PO DAILY PRN PRN Reason: constipation Duloxetine HCl (Duloxetine Hcl 20 Mg Capsule.Dr) 20 mg PO DAILY [facility] Last Admin: 12/10/22 09:06 Dose: 20 mg Finasteride (Finasteride 5 Mg Tablet) 5 mg PO DAILY [facility] Last Admin: 12/10/22 09:10 Dose: 5 mg Gabapentin (Gabapentin 100 Mg Capsule) 100 mg PO TID [facility] Last Admin: 12/10/22 20:53 Dose: 100 mg Glucose (Glucose Gel 15 Gm Gel..Gram.) 15 gm PO Q15M PRN; Protocol PRN Reason: per Hypoglycemia Standing Ord. Hydroxyzine HCl (Hydroxyzine Hcl 25 Mg Tablet) 25 mg PO Q6H PRN PRN Reason: Anxiety Last Admin: 12/07/22 22:31 Dose: 25 mg Hydroxyzine HCl (Hydroxyzine Hcl 25 Mg Tablet) 25 mg PO BEDTIME [facility] Last Admin: 12/10/22 20:54 Dose: 25 mg Dextrose (D10) 250 mls @ 750 mls/hr IV Q15M PRN; Protocol PRN Reason: per Hypoglycemia Standing Ord. Insulin Glargine (Insulin Glargine,Hum.Rec.Anlog 100 Unit/Ml 10 Ml Vial) 8 unit SUBCUT DAILY [facility] Last Admin: 12/10/22 09:11 Dose: 8 unit Insulin Human Lispro (Insulin Lispro 100 Unit/Ml 3 Ml Vial) 0 unit SUBCUT QIDACHS [facility]; Protocol Last Admin: 12/10/22 22:44 Dose: Not Given Lidocaine (Lidocaine 4 % Patch Adh..Patch) 1 patch TRANSDERMA DAILY [facility]; Protocol Last Admin: 12/10/22 09:08 Dose: 1 patch Lidocaine (Lidocaine 4 % Patch Adh..Patch) 1 patch TRANSDERMA DAILY [facility]; Protocol Last Admin: 12/10/22 11:12 Dose: 1 patch Losartan Potassium (Losartan Potassium 50 Mg Tablet) 100 mg PO DAILY [place]; Protocol Last Admin: 12/10/22 09:07 Dose: 100 mg Magnesium Hydroxide (Milk Of Magnesia 30 Ml Oral.Susp) 30 ml PO DAILY PRN PRN Reason: Constipation Melatonin (Melatonin 3 Mg Tablet) 9 mg PO BEDTIME [facility] Last Admin: 12/10/22 20:54 Dose: 9 mg Metformin HCl (Metformin Hcl 500 Mg Tablet) 500 mg PO BIDWM [facility] Last Admin: 12/10/22 16:36 Dose: 500 mg Metoprolol Succinate (Metoprolol Succinate Er 100 Mg Tab.Er.24h) 100 mg PO DAILY [facility]; Protocol Last Admin: 12/10/22 09:05 Dose: 100 mg Mirtazapine (Mirtazapine 15 Mg Tablet) 45 mg PO BEDTIME [facility] Last Admin: 12/10/22 20:54 Dose: 45 mg Nicotine Polacrilex (Nicotine Polacrilex 2 Mg Gum) 4 mg BUCCAL Q2H PRN PRN Reason: Nicotine Cravings Omeprazole (Omeprazole 40 Mg Capsule.Dr) 40 mg PO DAILY@0630 [facility] Last Admin: 12/11/22 05:51 Dose: 40 mg Polyethylene Glycol (Polyethylene Glycol 3350 17 Gm Powd.Pack) 17 gm PO DAILY [facility] Last Admin: 12/10/22 09:09 Dose: 17 gm Quetiapine Fumarate (Quetiapine Fumarate 25 Mg Tablet) 75 mg PO BEDTIME [facility] Last Admin: 12/10/22 20:54 Dose: 75 mg Salmeterol Xinafoate (Salmeterol Xinafoate 50 Mcg Blst.W.Dev) 1 puff INHALE RBID [facility] Last Admin: 12/10/22 20:50 Dose: 1 puff Tamsulosin HCl (Tamsulosin Hcl 0.4 Mg Capsule) 0.8 mg PO BEDTIME [facility] Last Admin: 12/10/22 20:54 Dose: 0.8 mg Tiotropium [place] (Tiotropium [place] 18 Mcg Cap.W.Dev) 1 puff INHALE [place] Last Admin: 12/10/22 09:38 Dose: 1 puff Trazodone HCl (Trazodone Hcl 50 Mg Tablet) 50 mg PO BEDTIME MRX1 PRN PRN Reason: Insomnia Last Admin: 12/06/22 21:20 Dose: 50 mg Allergies Allergies Allergy/AdvReac Type Severity Reaction Status Date / Time iodine Allergy Swelling Verified 12/06/22 22:57 levofloxacin [From Levaquin] Allergy Joint Pain Verified 12/06/22 22:36 povidone-iodine Allergy Swelling Verified 12/06/22 22:57 [From Betadine] Assessment & Plan Assessment & Plan (1) Depression, major, severe recurrence: Status: Acute Code(s): F33.2 - Major depressive disorder, recurrent severe without psychotic features Assessment and Plan: 77 yo male with history of recurrent depression admitted with suicidal ideation with a plan to access firearms to kill himself. He has been struggling with medical issues, housing, difficulty navigating social needs and medical conditions due to illiteracy. His Cymbalta was discontinued due to Low Na+ but that didn't resolve after discontinuation. Plan Admit to geripsychiatry unit. CV 15 min checks Milieu therapy Collaterals Restart Cymbalta and titrate as tolerated. Patient agrees. Discharge planning. 12/08: Start GBP 100 mg TID targeting peripheral neuropathy Plan 1. Gather collateral information. 2. Continue a panty 100 mg p.o. t.i.d. since he is not over-sedated. 3. Keep Cymbalta 20 mg p.o. daily, will increase it up to 30 in a couple of days. 4. Basic metabolic panel, hemoglobin A1c, CBC with differential for tomorrow morning December 12 Reason for continued inpatient stay Substantial Risk for: inability to function, rapid decompensation and med/psych decompensation Time Spent With Patient Time: Total time managing care of this patient today _20__ minutes.
[2022-12-11] MEDS: polyethylene glycoL 3350 17 GM POWD.PACK PO (08:19)
[2022-12-11] MEDS: Clotrimazole 1 % Cream 15 GM TUBE 1 APPL TOPICAL (08:19)
[2022-12-11] MEDS: Lidocaine 4 % Patch ADH..PATCH 1 PATCH TRANSDERMA ×2 (08:20)
[2022-12-11] MEDS: Salmeterol Xinafoate 50 MCG BLST.W.DEV 1 PUFF INHALE (08:23)
[2022-12-11 11:09] LABS: Glucose, Whole Blood 209 mg/dL (60-115)
[2022-12-11] MEDS: Insulin Lispro 100 UNIT/ML 3 ML VIAL SUBCUT ×2 (11:19→21:07)
[2022-12-11 16:45] LABS: Glucose, Whole Blood 138 mg/dL (60-115)
[2022-12-11 18:00] VITALS: BP 126/61; PULSE 61; RESP 16; TEMP 35.7; O2SAT 93
[2022-12-11] MEDS: Tamsulosin HCL 0.4 MG CAPSULE 0.8 MG PO (20:58)
[2022-12-11] MEDS: Melatonin 3 MG TABLET 9 MG PO (21:00)
[2022-12-11] MEDS: QUEtiapine Fumarate 25 MG TABLET 75 MG PO (21:00)
[2022-12-11] MEDS: hydrOXYzine HCL 25 MG TABLET PO (21:02)
[2022-12-11] MEDS: Mirtazapine 15 MG TABLET 45 MG PO (21:17)
[2022-12-11 21:24] LABS: Glucose, Whole Blood 165 mg/dL (60-115)
[2022-12-12] MEDS: Omeprazole 40 MG CAPSULE.DR PO (06:27)
[2022-12-12 07:00] VITALS: BMI 31.9
[2022-12-12 07:59] LABS: MANUAL DIFF FLAG NO
[2022-12-12 08:08] LABS: Basophils Percent Auto 0.1 % (0-2); Eosinophils Absolute Auto 0.3 X10*3/uL (0.0-0.4); Eosinophils Percent Auto 3.8 % (0-4); Hematocrit 38.1 % (42.0-52.0); Hemoglobin 12.9 g/dl (14.0-18.0); Imm Gran Abs Auto 0.03 X10*3/uL (0.00-0.03); Imm Gran Pct Auto 0.4 % (0.0-0.4); Lymphocytes Absolute Auto 1.4 X10*3/uL (1.2-4.9); Lymphocytes Percent Auto 18.4 % (20-40); Mean Corpuscular HGB Conc 33.9 g/dl (31.0-36.0); Mean Corpuscular Hemoglobin 29.5 pg (27.0-33.0); Mean Platelet Volume 10.1 fL (9.4-12.4); Monocytes Absolute Auto 0.6 X10*3/uL (0.1-1.2); Monocytes Percent Auto 7.5 % (2-11); Neutrophils Absolute Auto 5.3 x10*3/uL (2.0-8.3); Neutrophils Percent Auto 69.8 % (45-73); Platelet Count 155 X10*3/uL (160-400); Red Blood Count 4.38 X10*6/uL (4.60-5.80); Red Cell Distribution Width 13.3 % (11.0-16.0); White Blood Count 7.6 X10*3/uL (4.8-10.8)
[2022-12-12 08:22] LABS: Estimated Average Glucose 183 mg/dL
[2022-12-12 08:28] LABS: Anion Gap 11 (12-20); Blood Urea Nitrogen 10 mg/dL (9-16); Calcium 8.9 mg/dL (8.4-10.2); Carbon Dioxide 25 mmol/L (22-29); Chloride 100 mmol/L (96-108); Creatinine Clr Calc Pharmacy 68.7; Estimated Glomerular Filt Rate > 60; Glucose Random 149 mg/dL (60-115); Potassium 4.7 mmol/L (3.3-5.1); Sodium 131 mmol/L (135-145)
[2022-12-12 08:46] VITALS: BP 106/54; PULSE 67; RESP 18; TEMP 35.6; O2SAT 95
[2022-12-12] MEDS: Cyanocobalamin (Vitamin B-12) 100 MCG TABLET PO (08:55)
[2022-12-12] MEDS: Finasteride 5 MG TABLET PO (08:55)
[2022-12-12] MEDS: Atorvastatin Calcium 40 MG TABLET PO (08:55)
[2022-12-12] MEDS: Gabapentin 100 MG CAPSULE PO ×3 (08:56→20:49)
[2022-12-12] MEDS: DULoxetine HCl 20 MG CAPSULE.DR PO (08:56)
[2022-12-12] MEDS: metFORMIN HCl 500 MG TABLET PO ×2 (08:56→17:03)
[2022-12-12] MEDS: Insulin Glargine,Hum.rec.anlog 100 UNIT/ML 10 ML VIAL 8 UNIT SUBCUT (08:57)
[2022-12-12] MEDS: Clopidogrel Bisulfate 75 MG TABLET PO (08:58)
[2022-12-12] MEDS: Lidocaine 4 % Patch ADH..PATCH 1 PATCH TRANSDERMA (08:59)
[2022-12-12] MEDS: Salmeterol Xinafoate 50 MCG BLST.W.DEV 1 PUFF INHALE (09:04)
[2022-12-12 10:29] LABS: Glucose, Whole Blood 132 mg/dL (60-115)
[2022-12-12 11:42] LABS: Glucose, Whole Blood 175 mg/dL (60-115)
[2022-12-12] MEDS: Insulin Lispro 100 UNIT/ML 3 ML VIAL SUBCUT ×3 (11:45→20:52)
--- NOTE | 2022-12-12 15:06 | HO.PSYCHPN ---
Subjective Subjective Date of Service: 12/12/22 Reason For Visit: Depression Subjective Notes: Conditional Voluntary and 3 Day Interim History: The nursing staff reported the patient had been taking his medications he denies pain or anxiety. He slept well last night. On interview the patient reports that he is doing well he wants to be discharged as soon as possible, I advised him to sign a 3 day notice. Mental Status Exam Mental Status Exam Patient Appearance: Appropriate Patient Orientation: Person and Situation Level of Consciousness: Awake and Alert Patient Behavior: Guarded and Passive Mood Description: Withdrawn Affect Description: Constricted Patient Cognition Impaired: Yes Ability to Follow Directions: Good Speech Pattern: Clear Hallucinations: None Delusions: Not Present Thought Content: positive for [place] and positive for [place] Oriented Judgement: Fair Diagnostics Vital Signs (24Hr): Vital Signs - 24 hr 12/11/22 18:00 12/12/22 08:46 Temperature 96.2 F L 96.1 F L Pulse Rate 61 67 Respiratory Rate 16 18 Blood Pressure 126/61 106/54 L Pulse Oximetry 93 95 Oxygen Delivery Method Room Air Room Air BMI result Body Mass Index 31.9 Labs 12/12/22 07:55 12/12/22 07:55 Labs: Laboratory Results - last 48 hr 12/10/22 12/10/22 12/11/22 16:18 20:52 07:43 WBC RBC Hgb Hct MCV MCH MCHC RDW Plt Count MPV Immature Gran % (Auto) Neut % (Auto) Lymph % (Auto) [place] % (Auto) Eos % (Auto) Baso % (Auto) Lymph # (Auto) [place] # (Auto) Eos # (Auto) Baso # (Auto) Abs Immat Gran (auto) Absolute Neuts (auto) Absolute Nucleated RBC Nucleated RBC % (auto) Sodium Potassium Chloride Carbon Dioxide Anion Gap BUN Creatinine Estim Creat Clear Calc Estimated GFR POC Glucose 183 H 112 128 H Random Glucose Estimat Average Glucose Hemoglobin A1c % Calcium TSH 12/11/22 12/11/22 12/11/22 11:06 16:31 20:52 WBC RBC Hgb Hct MCV MCH MCHC RDW Plt Count MPV Immature Gran % (Auto) Neut % (Auto) Lymph % (Auto) [place] % (Auto) Eos % (Auto) Baso % (Auto) Lymph # (Auto) [place] # (Auto) Eos # (Auto) Baso # (Auto) Abs Immat Gran (auto) Absolute Neuts (auto) Absolute Nucleated RBC Nucleated RBC % (auto) Sodium Potassium Chloride Carbon Dioxide Anion Gap BUN Creatinine Estim Creat Clear Calc Estimated GFR POC Glucose 209 H 138 H 165 H Random Glucose Estimat Average Glucose Hemoglobin A1c % Calcium TSH 12/12/22 12/12/22 12/12/22 07:43 07:55 07:55 WBC 7.6 RBC 4.38 L Hgb 12.9 L Hct 38.1 L MCV 87.0 MCH 29.5 MCHC 33.9 RDW 13.3 Plt Count 155 L MPV 10.1 Immature Gran % (Auto) 0.4 Neut % (Auto) 69.8 Lymph % (Auto) 18.4 L [place] % (Auto) 7.5 Eos % (Auto) 3.8 Baso % (Auto) 0.1 Lymph # (Auto) 1.4 [place] # (Auto) 0.6 Eos # (Auto) 0.3 Baso # (Auto) 0.0 Abs Immat Gran (auto) 0.03 Absolute Neuts (auto) 5.3 Absolute Nucleated RBC 0.000 Nucleated RBC % (auto) 0.0 Sodium 131 L Potassium 4.7 Chloride 100 Carbon Dioxide 25 Anion Gap 11 L BUN 10 Creatinine 1.04 Estim Creat Clear Calc 68.7 Estimated GFR > 60 POC Glucose 132 H Random Glucose 149 H Estimat Average Glucose Hemoglobin A1c % Calcium 8.9 TSH 2.10 12/12/22 12/12/22 07:55 11:39 WBC RBC Hgb Hct MCV MCH MCHC RDW Plt Count MPV Immature Gran % (Auto) Neut % (Auto) Lymph % (Auto) [place] % (Auto) Eos % (Auto) Baso % (Auto) Lymph # (Auto) [place] # (Auto) Eos # (Auto) Baso # (Auto) Abs Immat Gran (auto) Absolute Neuts (auto) Absolute Nucleated RBC Nucleated RBC % (auto) Sodium Potassium Chloride Carbon Dioxide Anion Gap BUN Creatinine Estim Creat Clear Calc Estimated GFR POC Glucose 175 H Random Glucose Estimat Average Glucose 183 Hemoglobin A1c % 8.0 Calcium TSH Medications Medications Current Medications Acetaminophen (Acetaminophen 325 Mg Tablet) 650 mg PO Q6H PRN PRN Reason: Headache/Pain Mild Scale (1-3) Last Admin: 12/07/22 22:30 Dose: 650 mg Al Hydroxide/Mg Hydroxide (Magnesium Hydrox/Alum Hydrox 30 Ml Oral.Susp) 30 ml PO Q6H PRN PRN Reason: Heartburn/Nausea Albuterol Sulfate (Albuterol Sulfate 90 Mcg 8 Gm Inhaler) 2 puff INHALE RQ6H PRN PRN Reason: Wheezing and/or dyspnea Amlodipine Besylate (Amlodipine Besylate 10 Mg Tablet) 10 mg PO DAILY [facility]; Protocol Last Admin: 12/12/22 09:03 Dose: Not Given Atorvastatin Calcium (Atorvastatin Calcium 40 Mg Tablet) 40 mg PO DAILY [facility] Last Admin: 12/12/22 08:55 Dose: 40 mg Clopidogrel Bisulfate (Clopidogrel Bisulfate 75 Mg Tablet) 75 mg PO DAILY [facility] Last Admin: 12/12/22 08:58 Dose: 75 mg Clotrimazole (Clotrimazole 1 % Cream 15 Gm Tube) 1 appl TOPICAL BID [facility]; Protocol Last Admin: 12/12/22 09:03 Dose: Not Given Cyanocobalamin (Cyanocobalamin (Vitamin B-12) 100 Mcg Tablet) 100 mcg PO DAILY [facility] Last Admin: 12/12/22 08:55 Dose: 100 mcg Docusate Sodium (Docusate Sodium 100 Mg Capsule) 300 mg PO DAILY PRN PRN Reason: constipation Duloxetine HCl (Duloxetine Hcl 20 Mg Capsule.Dr) 20 mg PO DAILY [facility] Last Admin: 12/12/22 08:56 Dose: 20 mg Finasteride (Finasteride 5 Mg Tablet) 5 mg PO DAILY [facility] Last Admin: 12/12/22 08:55 Dose: 5 mg Gabapentin (Gabapentin 100 Mg Capsule) 100 mg PO TID [facility] Last Admin: 12/12/22 14:53 Dose: 100 mg Glucose (Glucose Gel 15 Gm Gel..Gram.) 15 gm PO Q15M PRN; Protocol PRN Reason: per Hypoglycemia Standing Ord. Hydroxyzine HCl (Hydroxyzine Hcl 25 Mg Tablet) 25 mg PO Q6H PRN PRN Reason: Anxiety Last Admin: 12/07/22 22:31 Dose: 25 mg Hydroxyzine HCl (Hydroxyzine Hcl 25 Mg Tablet) 25 mg PO BEDTIME [facility] Last Admin: 12/11/22 21:02 Dose: 25 mg Dextrose (D10) 250 mls @ 750 mls/hr IV Q15M PRN; Protocol PRN Reason: per Hypoglycemia Standing Ord. Insulin Glargine (Insulin Glargine,Hum.Rec.Anlog 100 Unit/Ml 10 Ml Vial) 8 unit SUBCUT DAILY [facility] Last Admin: 12/12/22 08:57 Dose: 8 unit Insulin Human Lispro (Insulin Lispro 100 Unit/Ml 3 Ml Vial) 0 unit SUBCUT QIDACHS [facility]; Protocol Last Admin: 12/12/22 11:45 Dose: 2 unit Lidocaine (Lidocaine 4 % Patch Adh..Patch) 1 patch TRANSDERMA DAILY [facility]; Protocol Last Admin: 12/12/22 08:59 Dose: 1 patch Lidocaine (Lidocaine 4 % Patch Adh..Patch) 1 patch TRANSDERMA DAILY [facility]; Protocol Last Admin: 12/12/22 09:02 Dose: Not Given Losartan Potassium (Losartan Potassium 50 Mg Tablet) 100 mg PO DAILY [facility]; Protocol Last Admin: 12/12/22 09:02 Dose: Not Given Magnesium Hydroxide (Milk Of Magnesia 30 Ml Oral.Susp) 30 ml PO DAILY PRN PRN Reason: Constipation Melatonin (Melatonin 3 Mg Tablet) 9 mg PO BEDTIME [facility] Last Admin: 12/11/22 21:00 Dose: 9 mg Metformin HCl (Metformin Hcl 500 Mg Tablet) 500 mg PO BIDWM [facility] Last Admin: 12/12/22 08:56 Dose: 500 mg Metoprolol Succinate (Metoprolol Succinate Er 100 Mg Tab.Er.24h) 100 mg PO DAILY [facility]; Protocol Last Admin: 12/12/22 09:02 Dose: Not Given Mirtazapine (Mirtazapine 15 Mg Tablet) 45 mg PO BEDTIME [facility] Last Admin: 12/11/22 21:17 Dose: 45 mg Nicotine Polacrilex (Nicotine Polacrilex 2 Mg Gum) 4 mg BUCCAL Q2H PRN PRN Reason: Nicotine Cravings Omeprazole (Omeprazole 40 Mg Capsule.Dr) 40 mg PO DAILY@0630 [facility] Last Admin: 12/12/22 06:27 Dose: 40 mg Polyethylene Glycol (Polyethylene Glycol 3350 17 Gm Powd.Pack) 17 gm PO DAILY [facility] Last Admin: 12/12/22 09:02 Dose: Not Given Quetiapine Fumarate (Quetiapine Fumarate 25 Mg Tablet) 75 mg PO BEDTIME [facility] Last Admin: 12/11/22 21:00 Dose: 75 mg Salmeterol Xinafoate (Salmeterol Xinafoate 50 Mcg Blst.W.Dev) 1 puff INHALE RBID [facility] Last Admin: 12/12/22 09:04 Dose: 1 puff Tamsulosin HCl (Tamsulosin Hcl 0.4 Mg Capsule) 0.8 mg PO BEDTIME [facility] Last Admin: 12/11/22 20:58 Dose: 0.8 mg Tiotropium [place] (Tiotropium [place] 18 Mcg Cap.W.Dev) 1 puff INHALE RDAILY [facility] Last Admin: 12/12/22 09:04 Dose: 1 puff Trazodone HCl (Trazodone Hcl 50 Mg Tablet) 50 mg PO BEDTIME MRX1 PRN PRN Reason: Insomnia Last Admin: 12/06/22 21:20 Dose: 50 mg Allergies Allergies Allergy/AdvReac Type Severity Reaction Status Date / Time iodine Allergy Swelling Verified 12/06/22 22:57 levofloxacin [From Levaquin] Allergy Joint Pain Verified 12/06/22 22:36 povidone-iodine Allergy Swelling Verified 12/06/22 22:57 [From Betadine] Assessment & Plan Assessment & Plan (1) Depression, major, severe recurrence: Status: Acute Code(s): F33.2 - Major depressive disorder, recurrent severe without psychotic features Assessment and Plan: 77 yo male with history of recurrent depression admitted with suicidal ideation with a plan to access firearms to kill himself. He has been struggling with medical issues, housing, difficulty navigating social needs and medical conditions due to illiteracy. His Cymbalta was discontinued due to Low Na+ but that didn't resolve after discontinuation. Plan Admit to geripsychiatry unit. CV 15 min checks Milieu therapy Collaterals Restart Cymbalta and titrate as tolerated. Patient agrees. Discharge planning. 12/08: Start GBP 100 mg TID targeting peripheral neuropathy Plan 1. Gather collateral information. 2. Continue Gabapentin 100 mg p.o. t.i.d. since he is not over-sedated. 3. Keep Cymbalta 20 mg p.o. daily, will increase it up to 30 in a couple of days. 4. Basic metabolic panel, hemoglobin A1c, CBC with differential for tomorrow morning December 12 Reason for continued inpatient stay Substantial Risk for: inability to function, rapid decompensation and med/psych decompensation Time Spent With Patient Time: Total time managing care of this patient today __20__ minutes.
[2022-12-12 16:52] LABS: Glucose, Whole Blood 158 mg/dL (60-115)
[2022-12-12 20:31] LABS: Glucose, Whole Blood 180 mg/dL (60-115)
[2022-12-12] MEDS: Mirtazapine 15 MG TABLET 45 MG PO (20:48)
[2022-12-12] MEDS: QUEtiapine Fumarate 25 MG TABLET 75 MG PO (20:48)
[2022-12-12] MEDS: Tamsulosin HCL 0.4 MG CAPSULE 0.8 MG PO (20:48)
[2022-12-12] MEDS: Melatonin 3 MG TABLET 9 MG PO (20:50)
[2022-12-12] MEDS: traZODone HCL 50 MG TABLET PO (20:52)
[2022-12-12] MEDS: hydrOXYzine HCL 25 MG TABLET PO (20:52)
[2022-12-13] MEDS: Omeprazole 40 MG CAPSULE.DR PO (06:31)
[2022-12-13 08:05] LABS: Glucose, Whole Blood 132 mg/dL (60-115)
[2022-12-13 08:55] VITALS: BP 147/72; PULSE 96; RESP 18; TEMP 36.2; O2SAT 95
[2022-12-13] MEDS: metFORMIN HCl 500 MG TABLET PO ×2 (08:59→17:15)
[2022-12-13] MEDS: Cyanocobalamin (Vitamin B-12) 100 MCG TABLET PO (08:59)
[2022-12-13] MEDS: Atorvastatin Calcium 40 MG TABLET PO (08:59)
[2022-12-13] MEDS: Gabapentin 100 MG CAPSULE PO ×3 (08:59→20:44)
[2022-12-13] MEDS: Finasteride 5 MG TABLET PO (08:59)
[2022-12-13] MEDS: Insulin Glargine,Hum.rec.anlog 100 UNIT/ML 10 ML VIAL 8 UNIT SUBCUT (09:00)
[2022-12-13] MEDS: Losartan Potassium 50 MG TABLET 100 MG PO (09:00)
[2022-12-13] MEDS: Clopidogrel Bisulfate 75 MG TABLET PO (09:00)
[2022-12-13] MEDS: Metoprolol Succinate ER 100 MG TAB.ER.24H PO (09:00)
[2022-12-13] MEDS: DULoxetine HCl 20 MG CAPSULE.DR PO (09:00)
[2022-12-13] MEDS: amLODIPine Besylate 10 MG TABLET PO (09:00)
[2022-12-13] MEDS: Salmeterol Xinafoate 50 MCG BLST.W.DEV 1 PUFF INHALE (09:02)
[2022-12-13] MEDS: Clotrimazole 1 % Cream 15 GM TUBE 1 APPL TOPICAL (09:06)
[2022-12-13 11:34] LABS: Glucose, Whole Blood 192 mg/dL (60-115)
[2022-12-13] MEDS: Insulin Lispro 100 UNIT/ML 3 ML VIAL SUBCUT ×3 (11:40→20:50)
--- NOTE | 2022-12-13 11:57 | P.PNPSI_ITS ---
Subjective Subjective Date of Service: 12/13/22 Reason For Visit: Depression Subjective Notes: Conditional Voluntary and 3 Day Interim History: The nursing staff reported the patient had been compliant with treatment, he adamantly denied suicidal ideation. On interview the patient reports that he is doing much better with Cymbalta 20 and he wants to get home. Yesterday he signed a 3 day notice. The social media marketing analyst reported that we are working on a safe discharge plan and doing appointments at the [facility] most likely to be discharged on Friday. Mental Status Exam Mental Status Exam Patient Appearance: Appropriate Patient Orientation: Person and Situation Level of Consciousness: Awake and Appropriate Patient Behavior: Guarded and Passive Mood Description: Withdrawn Affect Description: Constricted Patient Cognition Impaired: Yes Ability to Follow Directions: Good Speech Pattern: Clear Hallucinations: None Delusions: Not Present Thought Process: Linear Thought Content: positive for [place] Judgement: Fair Diagnostics Vital Signs (24Hr): Vital Signs - 24 hr 12/13/22 08:55 Temperature 97.1 F Pulse Rate 96 Respiratory Rate 18 Blood Pressure 147/72 H Pulse Oximetry 95 Oxygen Delivery Method Room Air BMI result Body Mass Index 31.9 Labs 12/12/22 07:55 12/12/22 07:55 Labs: Laboratory Results - last 48 hr 12/11/22 12/11/22 12/12/22 16:31 20:52 07:43 WBC RBC Hgb Hct MCV MCH MCHC RDW Plt Count MPV Immature Gran % (Auto) Neut % (Auto) Lymph % (Auto) [place] % (Auto) Eos % (Auto) Baso % (Auto) Lymph # (Auto) [place] # (Auto) Eos # (Auto) Baso # (Auto) Abs Immat Gran (auto) Absolute Neuts (auto) Absolute Nucleated RBC Nucleated RBC % (auto) Sodium Potassium Chloride Carbon Dioxide Anion Gap BUN Creatinine Estim Creat Clear Calc Estimated GFR POC Glucose 138 H 165 H 132 H Random Glucose Estimat Average Glucose Hemoglobin A1c % Calcium TSH 12/12/22 12/12/22 12/12/22 07:55 07:55 07:55 WBC 7.6 RBC 4.38 L Hgb 12.9 L Hct 38.1 L MCV 87.0 MCH 29.5 MCHC 33.9 RDW 13.3 Plt Count 155 L MPV 10.1 Immature Gran % (Auto) 0.4 Neut % (Auto) 69.8 Lymph % (Auto) 18.4 L [place] % (Auto) 7.5 Eos % (Auto) 3.8 Baso % (Auto) 0.1 Lymph # (Auto) 1.4 [place] # (Auto) 0.6 Eos # (Auto) 0.3 Baso # (Auto) 0.0 Abs Immat Gran (auto) 0.03 Absolute Neuts (auto) 5.3 Absolute Nucleated RBC 0.000 Nucleated RBC % (auto) 0.0 Sodium 131 L Potassium 4.7 Chloride 100 Carbon Dioxide 25 Anion Gap 11 L BUN 10 Creatinine 1.04 Estim Creat Clear Calc 68.7 Estimated GFR > 60 POC Glucose Random Glucose 149 H Estimat Average Glucose 183 Hemoglobin A1c % 8.0 Calcium 8.9 TSH 2.10 12/12/22 12/12/22 12/12/22 11:39 16:36 20:25 WBC RBC Hgb Hct MCV MCH MCHC RDW Plt Count MPV Immature Gran % (Auto) Neut % (Auto) Lymph % (Auto) [place] % (Auto) Eos % (Auto) Baso % (Auto) Lymph # (Auto) [place] # (Auto) Eos # (Auto) Baso # (Auto) Abs Immat Gran (auto) Absolute Neuts (auto) Absolute Nucleated RBC Nucleated RBC % (auto) Sodium Potassium Chloride Carbon Dioxide Anion Gap BUN Creatinine Estim Creat Clear Calc Estimated GFR POC Glucose 175 H 158 H 180 H Random Glucose Estimat Average Glucose Hemoglobin A1c % Calcium TSH 12/13/22 12/13/22 07:50 11:31 WBC RBC Hgb Hct MCV MCH MCHC RDW Plt Count MPV Immature Gran % (Auto) Neut % (Auto) Lymph % (Auto) [place] % (Auto) Eos % (Auto) Baso % (Auto) Lymph # (Auto) [place] # (Auto) Eos # (Auto) Baso # (Auto) Abs Immat Gran (auto) Absolute Neuts (auto) Absolute Nucleated RBC Nucleated RBC % (auto) Sodium Potassium Chloride Carbon Dioxide Anion Gap BUN Creatinine Estim Creat Clear Calc Estimated GFR POC Glucose 132 H 192 H Random Glucose Estimat Average Glucose Hemoglobin A1c % Calcium TSH Medications Medications Current Medications Acetaminophen (Acetaminophen 325 Mg Tablet) 650 mg PO Q6H PRN PRN Reason: Headache/Pain Mild Scale (1-3) Last Admin: 12/07/22 22:30 Dose: 650 mg Al Hydroxide/Mg Hydroxide (Magnesium Hydrox/Alum Hydrox 30 Ml Oral.Susp) 30 ml PO Q6H PRN PRN Reason: Heartburn/Nausea Albuterol Sulfate (Albuterol Sulfate 90 Mcg 8 Gm Inhaler) 2 puff INHALE RQ6H PRN PRN Reason: Wheezing and/or dyspnea Amlodipine Besylate (Amlodipine Besylate 10 Mg Tablet) 10 mg PO DAILY [facility]; Protocol Last Admin: 12/13/22 09:00 Dose: 10 mg Atorvastatin Calcium (Atorvastatin Calcium 40 Mg Tablet) 40 mg PO DAILY [facility] Last Admin: 12/13/22 08:59 Dose: 40 mg Clopidogrel Bisulfate (Clopidogrel Bisulfate 75 Mg Tablet) 75 mg PO DAILY [facility] Last Admin: 12/13/22 09:00 Dose: 75 mg Clotrimazole (Clotrimazole 1 % Cream 15 Gm Tube) 1 appl TOPICAL BID [facility]; Protocol Last Admin: 12/13/22 09:06 Dose: 1 appl Cyanocobalamin (Cyanocobalamin (Vitamin B-12) 100 Mcg Tablet) 100 mcg PO DAILY [facility] Last Admin: 12/13/22 08:59 Dose: 100 mcg Docusate Sodium (Docusate Sodium 100 Mg Capsule) 300 mg PO DAILY PRN PRN Reason: constipation Duloxetine HCl (Duloxetine Hcl 20 Mg Capsule.Dr) 20 mg PO DAILY [facility] Last Admin: 12/13/22 09:00 Dose: 20 mg Finasteride (Finasteride 5 Mg Tablet) 5 mg PO DAILY [facility] Last Admin: 12/13/22 08:59 Dose: 5 mg Gabapentin (Gabapentin 100 Mg Capsule) 100 mg PO TID [facility] Last Admin: 12/13/22 08:59 Dose: 100 mg Glucose (Glucose Gel 15 Gm Gel..Gram.) 15 gm PO Q15M PRN; Protocol PRN Reason: per Hypoglycemia Standing Ord. Hydroxyzine HCl (Hydroxyzine Hcl 25 Mg Tablet) 25 mg PO Q6H PRN PRN Reason: Anxiety Last Admin: 12/07/22 22:31 Dose: 25 mg Hydroxyzine HCl (Hydroxyzine Hcl 25 Mg Tablet) 25 mg PO BEDTIME [facility] Last Admin: 12/12/22 20:52 Dose: 25 mg Dextrose (D10) 250 mls @ 750 mls/hr IV Q15M PRN; Protocol PRN Reason: per Hypoglycemia Standing Ord. Insulin Glargine (Insulin Glargine,Hum.Rec.Anlog 100 Unit/Ml 10 Ml Vial) 8 unit SUBCUT DAILY [facility] Last Admin: 12/13/22 09:00 Dose: 8 unit Insulin Human Lispro (Insulin Lispro 100 Unit/Ml 3 Ml Vial) 0 unit SUBCUT QIDACHS [facility]; Protocol Last Admin: 12/13/22 11:40 Dose: 2 unit Lidocaine (Lidocaine 4 % Patch Adh..Patch) 1 patch TRANSDERMA DAILY [facility]; Protocol Last Admin: 12/13/22 09:08 Dose: Not Given Lidocaine (Lidocaine 4 % Patch Adh..Patch) 1 patch TRANSDERMA DAILY [facility]; Protocol Last Admin: 12/13/22 09:08 Dose: Not Given Losartan Potassium (Losartan Potassium 50 Mg Tablet) 100 mg PO DAILY [facility]; Protocol Last Admin: 12/13/22 09:00 Dose: 100 mg Magnesium Hydroxide (Milk Of Magnesia 30 Ml Oral.Susp) 30 ml PO DAILY PRN PRN Reason: Constipation Melatonin (Melatonin 3 Mg Tablet) 9 mg PO BEDTIME [facility] Last Admin: 12/12/22 20:50 Dose: 9 mg Metformin HCl (Metformin Hcl 500 Mg Tablet) 500 mg PO BIDWM [facility] Last Admin: 12/13/22 08:59 Dose: 500 mg Metoprolol Succinate (Metoprolol Succinate Er 100 Mg Tab.Er.24h) 100 mg PO DAILY [facility]; Protocol Last Admin: 12/13/22 09:00 Dose: 100 mg Mirtazapine (Mirtazapine 15 Mg Tablet) 45 mg PO BEDTIME [facility] Last Admin: 12/12/22 20:48 Dose: 45 mg Nicotine Polacrilex (Nicotine Polacrilex 2 Mg Gum) 4 mg BUCCAL Q2H PRN PRN Reason: Nicotine Cravings Omeprazole (Omeprazole 40 Mg Capsule.Dr) 40 mg PO DAILY@0630 [facility] Last Admin: 12/13/22 06:31 Dose: 40 mg Polyethylene Glycol (Polyethylene Glycol 3350 17 Gm Powd.Pack) 17 gm PO DAILY [facility] Last Admin: 12/13/22 09:37 Dose: Not Given Quetiapine Fumarate (Quetiapine Fumarate 25 Mg Tablet) 75 mg PO BEDTIME [facility] Last Admin: 12/12/22 20:48 Dose: 75 mg Salmeterol Xinafoate (Salmeterol Xinafoate 50 Mcg Blst.W.Dev) 1 puff INHALE RBID [facility] Last Admin: 12/13/22 09:02 Dose: 1 puff Tamsulosin HCl (Tamsulosin Hcl 0.4 Mg Capsule) 0.8 mg PO BEDTIME [facility] Last Admin: 12/12/22 20:48 Dose: 0.8 mg Tiotropium [place] (Tiotropium [place] 18 Mcg Cap.W.Dev) 1 puff INHALE RDAILY [facility] Last Admin: 12/13/22 09:01 Dose: 1 puff Trazodone HCl (Trazodone Hcl 50 Mg Tablet) 50 mg PO BEDTIME MRX1 PRN PRN Reason: Insomnia Last Admin: 12/12/22 20:52 Dose: 50 mg Allergies Allergies Allergy/AdvReac Type Severity Reaction Status Date / Time iodine Allergy Swelling Verified 12/06/22 22:57 levofloxacin [From Levaquin] Allergy Joint Pain Verified 12/06/22 22:36 povidone-iodine Allergy Swelling Verified 12/06/22 22:57 [From Betadine] Assessment & Plan Assessment & Plan (1) Depression, major, severe recurrence: Status: Acute Code(s): F33.2 - Major depressive disorder, recurrent severe without psychotic features Assessment and Plan: 77 yo male with history of recurrent depression admitted with suicidal ideation with a plan to access firearms to kill himself. He has been struggling with medical issues, housing, difficulty navigating social needs and medical conditions due to illiteracy. His Cymbalta was discontinued due to Low Na+ but that didn't resolve after discontinuation. Plan Admit to geripsychiatry unit. CV 15 min checks Milieu therapy Collaterals Restart Cymbalta and titrate as tolerated. Patient agrees. Discharge planning. 12/08: Start GBP 100 mg TID targeting peripheral neuropathy Plan 1. Gather collateral information. 2. Continue Gabapentin 100 mg p.o. t.i.d. since he is not over-sedated. 3. Keep Cymbalta 20 mg p.o. daily, will increase it up to 30 in a couple of days. 4. Basic metabolic panel, hemoglobin A1c, CBC with differential on December 12, came back normal. 5. [facility] Reason for continued inpatient stay Substantial Risk for: inability to function, rapid decompensation and med/psych decompensation Time Spent With Patient Time: Total time managing care of this patient today __20__ minutes.
[2022-12-13 16:52] LABS: Glucose, Whole Blood 191 mg/dL (60-115)
[2022-12-13 18:00] VITALS: BP 142/68; PULSE 69; RESP 18; TEMP 36.2; O2SAT 94
[2022-12-13] MEDS: Melatonin 3 MG TABLET 9 MG PO (20:43)
[2022-12-13] MEDS: Mirtazapine 15 MG TABLET 45 MG PO (20:43)
[2022-12-13] MEDS: Tamsulosin HCL 0.4 MG CAPSULE 0.8 MG PO (20:44)
[2022-12-13] MEDS: QUEtiapine Fumarate 25 MG TABLET 75 MG PO (20:44)
[2022-12-13] MEDS: hydrOXYzine HCL 25 MG TABLET PO (20:44)
[2022-12-13 21:07] LABS: Glucose, Whole Blood 196 mg/dL (60-115)
[2022-12-13] MEDS: traZODone HCL 50 MG TABLET PO (22:13)
[2022-12-13] MEDS: Acetaminophen 325 MG TABLET 650 MG PO (22:13)
[2022-12-14 06:00] VITALS: BP 121/65; PULSE 65; RESP 16; TEMP 36.2; O2SAT 95
[2022-12-14] MEDS: Omeprazole 40 MG CAPSULE.DR PO (06:31)
[2022-12-14 07:54] LABS: Glucose, Whole Blood 114 mg/dL (60-115)
[2022-12-14] MEDS: metFORMIN HCl 500 MG TABLET PO ×2 (08:47→17:19)
[2022-12-14] MEDS: amLODIPine Besylate 10 MG TABLET PO (08:47)
[2022-12-14] MEDS: DULoxetine HCl 20 MG CAPSULE.DR PO (08:47)
[2022-12-14] MEDS: Finasteride 5 MG TABLET PO (08:47)
[2022-12-14] MEDS: Gabapentin 100 MG CAPSULE PO ×3 (08:47→15:45)
[2022-12-14] MEDS: Metoprolol Succinate ER 100 MG TAB.ER.24H PO (08:47)
[2022-12-14] MEDS: Atorvastatin Calcium 40 MG TABLET PO (08:47)
[2022-12-14] MEDS: Losartan Potassium 50 MG TABLET 100 MG PO (08:47)
[2022-12-14] MEDS: Cyanocobalamin (Vitamin B-12) 100 MCG TABLET PO (08:47)
[2022-12-14] MEDS: Clopidogrel Bisulfate 75 MG TABLET PO (08:47)
[2022-12-14] MEDS: Salmeterol Xinafoate 50 MCG BLST.W.DEV 1 PUFF INHALE ×2 (08:49→20:51)
[2022-12-14] MEDS: Insulin Glargine,Hum.rec.anlog 100 UNIT/ML 10 ML VIAL 8 UNIT SUBCUT (08:51)
[2022-12-14] MEDS: Insulin Lispro 100 UNIT/ML 3 ML VIAL SUBCUT ×2 (11:20→20:59)
[2022-12-14 11:21] LABS: Glucose, Whole Blood 168 mg/dL (60-115)
--- NOTE | 2022-12-14 15:41 | HO.PSYCHPN ---
Subjective Subjective Date of Service: 12/14/22 Reason For Visit: Depression Interim History: met w/ patient; discussed with team; reviewed chart pt reports mood is good depression gone and no SI. He c/o continued chronic neuropathic b/l foot pain and asked for gabapentin to be increased. Mental Status Exam Mental Status Exam Narrative: Pt is alert and oriented; behavior is cooperative, friendly and calm; patient is not in distress; dressed in casual attire with unkempt hair but adequate hygiene; mood is described as good and affect congruent; eye contact appropriate; Speech is normal rate, volume and prosody and not pressured; no psychomotor agitation/retardation present; thought process is organized and goal directed; Thought content is on tx; otherwise pertinent to relevant topics and without any delusional content, paranoid ideations or grandiosity; denies any SI/HI. There is no evidence of perceptual disturbance. Patients insight and judgment appear intact. Diagnostics Vital Signs (24Hr): Vital Signs - 24 hr 12/13/22 18:00 12/14/22 06:00 Temperature 97.2 F 97.2 F Pulse Rate 69 65 Respiratory Rate 18 16 Blood Pressure 142/68 H 121/65 Pulse Oximetry 94 95 Oxygen Delivery Method Room Air Room Air BMI result Body Mass Index 31.9 Labs 12/12/22 07:55 12/12/22 07:55 Labs: Laboratory Results - last 48 hr 12/12/22 12/12/22 12/13/22 16:36 20:25 07:50 POC Glucose 158 H 180 H 132 H 12/13/22 12/13/22 12/13/22 11:31 16:47 20:39 POC Glucose 192 H 191 H 196 H 12/14/22 12/14/22 07:44 11:11 POC Glucose 114 168 H Medications Medications Current Medications Acetaminophen (Acetaminophen 325 Mg Tablet) 650 mg PO Q6H PRN PRN Reason: Headache/Pain Mild Scale (1-3) Last Admin: 12/13/22 22:13 Dose: 650 mg Al Hydroxide/Mg Hydroxide (Magnesium Hydrox/Alum Hydrox 30 Ml Oral.Susp) 30 ml PO Q6H PRN PRN Reason: Heartburn/Nausea Albuterol Sulfate (Albuterol Sulfate 90 Mcg 8 Gm Inhaler) 2 puff INHALE RQ6H PRN PRN Reason: Wheezing and/or dyspnea Amlodipine Besylate (Amlodipine Besylate 10 Mg Tablet) 10 mg PO DAILY [facility]; Protocol Last Admin: 12/14/22 08:47 Dose: 10 mg Atorvastatin Calcium (Atorvastatin Calcium 40 Mg Tablet) 40 mg PO DAILY [facility] Last Admin: 12/14/22 08:47 Dose: 40 mg Clopidogrel Bisulfate (Clopidogrel Bisulfate 75 Mg Tablet) 75 mg PO DAILY [facility] Last Admin: 12/14/22 08:47 Dose: 75 mg Clotrimazole (Clotrimazole 1 % Cream 15 Gm Tube) 1 appl TOPICAL BID [facility]; Protocol Last Admin: 12/14/22 09:02 Dose: Not Given Cyanocobalamin (Cyanocobalamin (Vitamin B-12) 100 Mcg Tablet) 100 mcg PO DAILY [facility] Last Admin: 12/14/22 08:47 Dose: 100 mcg Docusate Sodium (Docusate Sodium 100 Mg Capsule) 300 mg PO DAILY PRN PRN Reason: constipation Duloxetine HCl (Duloxetine Hcl 20 Mg Capsule.Dr) 20 mg PO DAILY [facility] Last Admin: 12/14/22 08:47 Dose: 20 mg Finasteride (Finasteride 5 Mg Tablet) 5 mg PO DAILY [facility] Last Admin: 12/14/22 08:47 Dose: 5 mg Gabapentin (Gabapentin 100 Mg Capsule) 100 mg PO TID [facility] Last Admin: 12/14/22 14:36 Dose: 100 mg Glucose (Glucose Gel 15 Gm Gel..Gram.) 15 gm PO Q15M PRN; Protocol PRN Reason: per Hypoglycemia Standing Ord. Hydroxyzine HCl (Hydroxyzine Hcl 25 Mg Tablet) 25 mg PO Q6H PRN PRN Reason: Anxiety Last Admin: 12/07/22 22:31 Dose: 25 mg Hydroxyzine HCl (Hydroxyzine Hcl 25 Mg Tablet) 25 mg PO BEDTIME [facility] Last Admin: 12/13/22 20:44 Dose: 25 mg Dextrose (D10) 250 mls @ 750 mls/hr IV Q15M PRN; Protocol PRN Reason: per Hypoglycemia Standing Ord. Insulin Glargine (Insulin Glargine,Hum.Rec.Anlog 100 Unit/Ml 10 Ml Vial) 8 unit SUBCUT DAILY [facility] Last Admin: 12/14/22 08:51 Dose: 8 unit Insulin Human Lispro (Insulin Lispro 100 Unit/Ml 3 Ml Vial) 0 unit SUBCUT QIDACHS [facility]; Protocol Last Admin: 12/14/22 11:20 Dose: 2 unit Lidocaine (Lidocaine 4 % Patch Adh..Patch) 1 patch TRANSDERMA DAILY [facility]; Protocol Last Admin: 12/14/22 09:02 Dose: Not Given Lidocaine (Lidocaine 4 % Patch Adh..Patch) 1 patch TRANSDERMA DAILY [facility]; Protocol Last Admin: 12/14/22 09:03 Dose: Not Given Losartan Potassium (Losartan Potassium 50 Mg Tablet) 100 mg PO DAILY [facility]; Protocol Last Admin: 12/14/22 08:47 Dose: 100 mg Magnesium Hydroxide (Milk Of Magnesia 30 Ml Oral.Susp) 30 ml PO DAILY PRN PRN Reason: Constipation Melatonin (Melatonin 3 Mg Tablet) 9 mg PO BEDTIME [facility] Last Admin: 12/13/22 20:43 Dose: 9 mg Metformin HCl (Metformin Hcl 500 Mg Tablet) 500 mg PO BIDWM [facility] Last Admin: 12/14/22 08:47 Dose: 500 mg Metoprolol Succinate (Metoprolol Succinate Er 100 Mg Tab.Er.24h) 100 mg PO DAILY [facility]; Protocol Last Admin: 12/14/22 08:47 Dose: 100 mg Mirtazapine (Mirtazapine 15 Mg Tablet) 45 mg PO BEDTIME [facility] Last Admin: 12/13/22 20:43 Dose: 45 mg Nicotine Polacrilex (Nicotine Polacrilex 2 Mg Gum) 4 mg BUCCAL Q2H PRN PRN Reason: Nicotine Cravings Omeprazole (Omeprazole 40 Mg Capsule.Dr) 40 mg PO DAILY@0630 [facility] Last Admin: 12/14/22 06:31 Dose: 40 mg Polyethylene Glycol (Polyethylene Glycol 3350 17 Gm Powd.Pack) 17 gm PO DAILY [facility] Last Admin: 12/14/22 09:03 Dose: Not Given Quetiapine Fumarate (Quetiapine Fumarate 25 Mg Tablet) 75 mg PO BEDTIME [facility] Last Admin: 12/13/22 20:44 Dose: 75 mg Salmeterol Xinafoate (Salmeterol Xinafoate 50 Mcg Blst.W.Dev) 1 puff INHALE RBID [facility] Last Admin: 12/14/22 08:49 Dose: 1 puff Tamsulosin HCl (Tamsulosin Hcl 0.4 Mg Capsule) 0.8 mg PO BEDTIME [facility] Last Admin: 12/13/22 20:44 Dose: 0.8 mg Tiotropium [place] (Tiotropium [place] 18 Mcg Cap.W.Dev) 1 puff INHALE RDODESSA [place] Last Admin: 12/14/22 08:49 Dose: 1 puff Trazodone HCl (Trazodone Hcl 50 Mg Tablet) 50 mg PO BEDTIME MRX1 PRN PRN Reason: Insomnia Last Admin: 12/13/22 22:13 Dose: 50 mg Allergies Allergies Allergy/AdvReac Type Severity Reaction Status Date / Time iodine Allergy Swelling Verified 12/06/22 22:57 levofloxacin [From Levaquin] Allergy Joint Pain Verified 12/06/22 22:36 povidone-iodine Allergy Swelling Verified 12/06/22 22:57 [From Betadine] Assessment & Plan Assessment & Plan (1) Depression, major, severe recurrence: Status: Acute Code(s): F33.2 - Major depressive disorder, recurrent severe without psychotic features Assessment and Plan: 77 yo male with history of recurrent depression admitted with suicidal ideation with a plan to access firearms to kill himself. He has been struggling with medical issues, housing, difficulty navigating social needs and medical conditions due to illiteracy. His Cymbalta was discontinued due to Low Na+ but that didn't resolve after discontinuation. Plan Admit to geripsychiatry unit. CV 15 min checks Milieu therapy Collaterals Restart Cymbalta and titrate as tolerated. Patient agrees. Discharge planning. 12/08: Start GBP 100 mg TID targeting peripheral neuropathy 5/6 will increase gabapentin to 300 t.i.d. (1st tried 200 mg and patient not sedated and still in pain) Plan 1. Gather collateral information. 2. Titrated to Gabapentin 300 mg p.o. t.i.d. since he is not over-sedated. 3. Keep Cymbalta 20 mg p.o. daily, will increase it up to 30 in a couple of days. 4. Basic metabolic panel, hemoglobin A1c, CBC with differential on December 12, came back normal. 5. [facility] Patient educated on: diagnosis, medication risk/benefits and medical condition Informed Consent: understands Reason for continued inpatient stay Substantial Risk for: stable for discharge Time Spent With Patient Time: Total time managing care of this patient today ____ minutes.
[2022-12-14 16:23] LABS: Glucose, Whole Blood 185 mg/dL (60-115)
[2022-12-14 18:00] VITALS: BP 132/70; PULSE 77; RESP 16; TEMP 37; O2SAT 94
[2022-12-14 20:32] LABS: Glucose, Whole Blood 224 mg/dL (60-115)
[2022-12-14] MEDS: Melatonin 3 MG TABLET 9 MG PO (20:47)
[2022-12-14] MEDS: Tamsulosin HCL 0.4 MG CAPSULE 0.8 MG PO (20:47)
[2022-12-14] MEDS: hydrOXYzine HCL 25 MG TABLET PO (20:48)
[2022-12-14] MEDS: QUEtiapine Fumarate 25 MG TABLET 75 MG PO (20:48)
[2022-12-14] MEDS: Gabapentin 300 MG CAPSULE PO (20:48)
[2022-12-14] MEDS: traZODone HCL 50 MG TABLET PO (20:48)
[2022-12-14] MEDS: Mirtazapine 15 MG TABLET 45 MG PO (20:48)
[2022-12-14] MEDS: Clotrimazole 1 % Cream 15 GM TUBE 1 APPL TOPICAL (21:00)
[2022-12-15] MEDS: Omeprazole 40 MG CAPSULE.DR PO (05:55)
[2022-12-15 07:39] LABS: Glucose, Whole Blood 122 mg/dL (60-115)
[2022-12-15 08:19] VITALS: BP 139/74; PULSE 64; RESP 16; TEMP 36.6; O2SAT 93
[2022-12-15] MEDS: Salmeterol Xinafoate 50 MCG BLST.W.DEV 1 PUFF INHALE ×2 (08:43→20:59)
[2022-12-15] MEDS: DULoxetine HCl 20 MG CAPSULE.DR PO (08:44)
[2022-12-15] MEDS: Metoprolol Succinate ER 100 MG TAB.ER.24H PO (08:44)
[2022-12-15] MEDS: Gabapentin 300 MG CAPSULE PO ×3 (08:44→20:59)
[2022-12-15] MEDS: Cyanocobalamin (Vitamin B-12) 100 MCG TABLET PO (08:44)
[2022-12-15] MEDS: Atorvastatin Calcium 40 MG TABLET PO (08:44)
[2022-12-15] MEDS: metFORMIN HCl 500 MG TABLET PO ×2 (08:44→16:21)
[2022-12-15] MEDS: Clopidogrel Bisulfate 75 MG TABLET PO (08:44)
[2022-12-15] MEDS: Finasteride 5 MG TABLET PO (08:45)
[2022-12-15] MEDS: Losartan Potassium 50 MG TABLET 100 MG PO (08:45)
[2022-12-15] MEDS: amLODIPine Besylate 10 MG TABLET PO (08:45)
[2022-12-15] MEDS: Insulin Glargine,Hum.rec.anlog 100 UNIT/ML 10 ML VIAL 8 UNIT SUBCUT (08:46)
[2022-12-15 11:18] LABS: Glucose, Whole Blood 227 mg/dL (60-115)
[2022-12-15 16:22] LABS: Glucose, Whole Blood 205 mg/dL (60-115)
[2022-12-15] MEDS: Insulin Lispro 100 UNIT/ML 3 ML VIAL SUBCUT ×2 (16:22→21:07)
[2022-12-15 18:00] VITALS: BP 131/72; PULSE 68; RESP 17; TEMP 36; O2SAT 92
--- NOTE | 2022-12-15 18:14 | HO.PSYCHPN ---
Subjective Subjective Date of Service: 12/15/22 Reason For Visit: Depression Interim History: Met with patient; discussed with team Patient reports remains in good mood. Appreciated the gabapentin increased dose which he said helped with neuropathic foot pain and that he was able to sleep. He asked about discharge next week and said he will talk to primary provider upon return Mental Status Exam Mental Status Exam Narrative: Pt is alert and oriented; behavior is cooperative, friendly and calm; patient is not in distress; dressed in casual attire with unkempt hair but adequate hygiene; mood is described as good and affect congruent; eye contact appropriate; Speech is normal rate, volume and prosody and not pressured; no psychomotor agitation/retardation present; thought process is organized and goal directed; Thought content is on tx; otherwise pertinent to relevant topics and without any delusional content, paranoid ideations or grandiosity; denies any SI/HI. There is no evidence of perceptual disturbance. Patients insight and judgment appear intact. Diagnostics Vital Signs (24Hr): Vital Signs - 24 hr 12/15/22 08:19 Temperature 97.9 F Pulse Rate 64 Respiratory Rate 16 Blood Pressure 139/74 Pulse Oximetry 93 Oxygen Delivery Method Room Air BMI result Body Mass Index 31.9 Labs 12/12/22 07:55 12/12/22 07:55 Labs: Laboratory Results - last 48 hr 12/13/22 12/14/22 12/14/22 20:39 07:44 11:11 POC Glucose 196 H 114 168 H 12/14/22 12/14/22 12/15/22 16:01 19:36 07:35 POC Glucose 185 H 224 H 122 H 12/15/22 12/15/22 11:08 16:02 POC Glucose 227 H 205 H Medications Medications Current Medications Acetaminophen (Acetaminophen 325 Mg Tablet) 650 mg PO Q6H PRN PRN Reason: Headache/Pain Mild Scale (1-3) Last Admin: 12/13/22 22:13 Dose: 650 mg Al Hydroxide/Mg Hydroxide (Magnesium Hydrox/Alum Hydrox 30 Ml Oral.Susp) 30 ml PO Q6H PRN PRN Reason: Heartburn/Nausea Albuterol Sulfate (Albuterol Sulfate 90 Mcg 8 Gm Inhaler) 2 puff INHALE RQ6H PRN PRN Reason: Wheezing and/or dyspnea Amlodipine Besylate (Amlodipine Besylate 10 Mg Tablet) 10 mg PO DAILY [place]; Protocol Last Admin: 12/15/22 08:45 Dose: 10 mg Atorvastatin Calcium (Atorvastatin Calcium 40 Mg Tablet) 40 mg PO DAILY [facility] Last Admin: 12/15/22 08:44 Dose: 40 mg Clopidogrel Bisulfate (Clopidogrel Bisulfate 75 Mg Tablet) 75 mg PO DAILY [facility] Last Admin: 12/15/22 08:44 Dose: 75 mg Clotrimazole (Clotrimazole 1 % Cream 15 Gm Tube) 1 appl TOPICAL BID [facility]; Protocol Last Admin: 12/14/22 21:00 Dose: 1 appl Cyanocobalamin (Cyanocobalamin (Vitamin B-12) 100 Mcg Tablet) 100 mcg PO DAILY [facility] Last Admin: 12/15/22 08:44 Dose: 100 mcg Docusate Sodium (Docusate Sodium 100 Mg Capsule) 300 mg PO DAILY PRN PRN Reason: constipation Duloxetine HCl (Duloxetine Hcl 20 Mg Capsule.Dr) 20 mg PO DAILY [facility] Last Admin: 12/15/22 08:44 Dose: 20 mg Finasteride (Finasteride 5 Mg Tablet) 5 mg PO DAILY [facility] Last Admin: 12/15/22 08:45 Dose: 5 mg Gabapentin (Gabapentin 300 Mg Capsule) 300 mg PO TID [facility] Last Admin: 12/15/22 14:36 Dose: 300 mg Glucose (Glucose Gel 15 Gm Gel..Gram.) 15 gm PO Q15M PRN; Protocol PRN Reason: per Hypoglycemia Standing Ord. Hydroxyzine HCl (Hydroxyzine Hcl 25 Mg Tablet) 25 mg PO Q6H PRN PRN Reason: Anxiety Last Admin: 12/07/22 22:31 Dose: 25 mg Hydroxyzine HCl (Hydroxyzine Hcl 25 Mg Tablet) 25 mg PO BEDTIME [facility] Last Admin: 12/14/22 20:48 Dose: 25 mg Dextrose (D10) 250 mls @ 750 mls/hr IV Q15M PRN; Protocol PRN Reason: per Hypoglycemia Standing Ord. Insulin Glargine (Insulin Glargine,Hum.Rec.Anlog 100 Unit/Ml 10 Ml Vial) 8 unit SUBCUT DAILY [facility] Last Admin: 12/15/22 08:46 Dose: 8 unit Insulin Human Lispro (Insulin Lispro 100 Unit/Ml 3 Ml Vial) 0 unit SUBCUT QIDACHS [facility]; Protocol Last Admin: 12/15/22 16:22 Dose: 4 unit Lidocaine (Lidocaine 4 % Patch Adh..Patch) 1 patch TRANSDERMA DAILY PRN; Protocol PRN Reason: muscle pain Lidocaine (Lidocaine 4 % Patch Adh..Patch) 1 patch TRANSDERMA DAILY PRN; Protocol PRN Reason: musculo/skel pain Losartan Potassium (Losartan Potassium 50 Mg Tablet) 100 mg PO DAILY [facility]; Protocol Last Admin: 12/15/22 08:45 Dose: 100 mg Magnesium Hydroxide (Milk Of Magnesia 30 Ml Oral.Susp) 30 ml PO DAILY PRN PRN Reason: Constipation Melatonin (Melatonin 3 Mg Tablet) 9 mg PO BEDTIME [facility] Last Admin: 12/14/22 20:47 Dose: 9 mg Metformin HCl (Metformin Hcl 500 Mg Tablet) 500 mg PO BIDWM [facility] Last Admin: 12/15/22 16:21 Dose: 500 mg Metoprolol Succinate (Metoprolol Succinate Er 100 Mg Tab.Er.24h) 100 mg PO DAILY [facility]; Protocol Last Admin: 12/15/22 08:44 Dose: 100 mg Mirtazapine (Mirtazapine 15 Mg Tablet) 45 mg PO BEDTIME [facility] Last Admin: 12/14/22 20:48 Dose: 45 mg Nicotine Polacrilex (Nicotine Polacrilex 2 Mg Gum) 4 mg BUCCAL Q2H PRN PRN Reason: Nicotine Cravings Omeprazole (Omeprazole 40 Mg Capsule.Dr) 40 mg PO DAILY@0630 [facility] Last Admin: 12/15/22 05:55 Dose: 40 mg Polyethylene Glycol (Polyethylene Glycol 3350 17 Gm Powd.Pack) 17 gm PO DAILY PRN PRN Reason: constipation Quetiapine Fumarate (Quetiapine Fumarate 25 Mg Tablet) 75 mg PO BEDTIME [facility] Last Admin: 12/14/22 20:48 Dose: 75 mg Salmeterol Xinafoate (Salmeterol Xinafoate 50 Mcg Blst.W.Dev) 1 puff INHALE RBID [facility] Last Admin: 12/15/22 08:43 Dose: 1 puff Tamsulosin HCl (Tamsulosin Hcl 0.4 Mg Capsule) 0.8 mg PO BEDTIME [facility] Last Admin: 12/14/22 20:47 Dose: 0.8 mg Tiotropium [place] (Tiotropium [place] 18 Mcg Cap.W.Dev) 1 puff INHALE RDAILY [facility] Last Admin: 12/15/22 08:55 Dose: Not Given Trazodone HCl (Trazodone Hcl 50 Mg Tablet) 50 mg PO BEDTIME MRX1 PRN PRN Reason: Insomnia Last Admin: 12/14/22 20:48 Dose: 50 mg Allergies Allergies Allergy/AdvReac Type Severity Reaction Status Date / Time iodine Allergy Swelling Verified 12/06/22 22:57 levofloxacin [From Levaquin] Allergy Joint Pain Verified 12/06/22 22:36 povidone-iodine Allergy Swelling Verified 12/06/22 22:57 [From Betadine] Assessment & Plan Assessment & Plan (1) Depression, major, severe recurrence: Status: Acute Code(s): F33.2 - Major depressive disorder, recurrent severe without psychotic features Assessment and Plan: 77 yo male with history of recurrent depression admitted with suicidal ideation with a plan to access firearms to kill himself. He has been struggling with medical issues, housing, difficulty navigating social needs and medical conditions due to illiteracy. His Cymbalta was discontinued due to Low Na+ but that didn't resolve after discontinuation. Plan Admit to geripsychiatry unit. CV 15 min checks Milieu therapy Collaterals Restart Cymbalta and titrate as tolerated. Patient agrees. Discharge planning. 12/08: Start GBP 100 mg TID targeting peripheral neuropathy 5/6 will increase gabapentin to 300 t.i.d. (1st tried 200 mg and patient not sedated and still in pain) 5/7 tolerated increased gabapentin which he said help with pain and unable to him sleep; otherwise continue current regimen Plan 1. Gather collateral information. 2. Titrated to Gabapentin 300 mg p.o. t.i.d. since he is not over-sedated. 3. Keep Cymbalta 20 mg p.o. daily, will increase it up to 30 in a couple of days. 4. Basic metabolic panel, hemoglobin A1c, CBC with differential on December 12, came back normal. 5. D[facility] Patient educated on: diagnosis and medical condition Informed Consent: understands Reason for continued inpatient stay Substantial Risk for: stable for discharge Time Spent With Patient Time: Total time managing care of this patient today ____ minutes.
[2022-12-15 20:17] LABS: Glucose, Whole Blood 155 mg/dL (60-115)
[2022-12-15] MEDS: Clotrimazole 1 % Cream 15 GM TUBE 1 APPL TOPICAL (20:59)
[2022-12-15] MEDS: Mirtazapine 15 MG TABLET 45 MG PO (21:00)
[2022-12-15] MEDS: Melatonin 3 MG TABLET 9 MG PO (21:00)
[2022-12-15] MEDS: hydrOXYzine HCL 25 MG TABLET PO (21:00)
[2022-12-15] MEDS: QUEtiapine Fumarate 25 MG TABLET 75 MG PO (21:00)
[2022-12-15] MEDS: Acetaminophen 325 MG TABLET 650 MG PO (21:01)
[2022-12-15] MEDS: Tamsulosin HCL 0.4 MG CAPSULE 0.8 MG PO (21:01)
[2022-12-16] MEDS: Omeprazole 40 MG CAPSULE.DR PO (06:25)
[2022-12-16 07:45] VITALS: BP 144/69; PULSE 62; RESP 18; TEMP 35.7; O2SAT 93
[2022-12-16 07:49] LABS: Glucose, Whole Blood 181 mg/dL (60-115)
[2022-12-16] MEDS: Insulin Glargine,Hum.rec.anlog 100 UNIT/ML 10 ML VIAL 8 UNIT SUBCUT (08:10)
[2022-12-16] MEDS: Metoprolol Succinate ER 100 MG TAB.ER.24H PO (08:11)
[2022-12-16] MEDS: Clopidogrel Bisulfate 75 MG TABLET PO (08:12)
[2022-12-16] MEDS: amLODIPine Besylate 10 MG TABLET PO (08:12)
[2022-12-16] MEDS: metFORMIN HCl 500 MG TABLET PO ×2 (08:12→16:34)
[2022-12-16] MEDS: Gabapentin 300 MG CAPSULE PO ×3 (08:12→20:46)
[2022-12-16] MEDS: Finasteride 5 MG TABLET PO (08:12)
[2022-12-16] MEDS: Losartan Potassium 50 MG TABLET 100 MG PO (08:12)
[2022-12-16] MEDS: Insulin Lispro 100 UNIT/ML 3 ML VIAL SUBCUT ×3 (08:12→21:09)
[2022-12-16] MEDS: Atorvastatin Calcium 40 MG TABLET PO (08:12)
[2022-12-16] MEDS: Cyanocobalamin (Vitamin B-12) 100 MCG TABLET PO (08:12)
--- NOTE | 2022-12-16 08:15 | HO.PSYCHPN ---
Subjective Subjective Date of Service: 12/16/22 Reason For Visit: Depression Subjective Notes: Conditional Voluntary and 3 Day Interim History: The nursing staff reported the patient had been 100% compliant with medication he ate 100% of his meals, yesterday he reported pain on his food and took Tylenol. On interview the patient denies new symptoms he denies suicidal ideation, he signed a 3 day notice and we will discharge him tomorrow with [facility]. So far, no hyponatremia with a restart of Cymbalta. Mental Status Exam Mental Status Exam Patient Appearance: Appropriate Patient Orientation: Person and Situation Level of Consciousness: Awake and Appropriate Patient Behavior: Guarded and Passive Mood Description: Calm Affect Description: Constricted Patient Cognition Impaired: Yes Ability to Follow Directions: Good Speech Pattern: Clear Hallucinations: None Delusions: Not Present Thought Process: Linear Thought Content: positive for [place] and positive for Circumstantial Judgement: Fair Diagnostics Vital Signs (24Hr): Vital Signs - 24 hr 12/15/22 08:19 12/15/22 18:00 Temperature 97.9 F 96.8 F Pulse Rate 64 68 Respiratory Rate 16 17 Blood Pressure 139/74 131/72 Pulse Oximetry 93 92 Oxygen Delivery Method Room Air Room Air BMI result Body Mass Index 31.9 Labs 12/12/22 07:55 12/12/22 07:55 Labs: Laboratory Results - last 48 hr 12/14/22 12/14/22 12/14/22 11:11 16:01 19:36 POC Glucose 168 H 185 H 224 H 12/15/22 12/15/22 12/15/22 07:35 11:08 16:02 POC Glucose 122 H 227 H 205 H 12/15/22 12/16/22 19:54 07:45 POC Glucose 155 H 181 H Medications Medications Current Medications Acetaminophen (Acetaminophen 325 Mg Tablet) 650 mg PO Q6H PRN PRN Reason: Headache/Pain Mild Scale (1-3) Last Admin: 12/15/22 21:01 Dose: 650 mg Al Hydroxide/Mg Hydroxide (Magnesium Hydrox/Alum Hydrox 30 Ml Oral.Susp) 30 ml PO Q6H PRN PRN Reason: Heartburn/Nausea Albuterol Sulfate (Albuterol Sulfate 90 Mcg 8 Gm Inhaler) 2 puff INHALE RQ6H PRN PRN Reason: Wheezing and/or dyspnea Amlodipine Besylate (Amlodipine Besylate 10 Mg Tablet) 10 mg PO DAILY [facility]; Protocol Last Admin: 12/15/22 08:45 Dose: 10 mg Atorvastatin Calcium (Atorvastatin Calcium 40 Mg Tablet) 40 mg PO DAILY [facility] Last Admin: 12/15/22 08:44 Dose: 40 mg Clopidogrel Bisulfate (Clopidogrel Bisulfate 75 Mg Tablet) 75 mg PO DAILY [facility] Last Admin: 12/15/22 08:44 Dose: 75 mg Clotrimazole (Clotrimazole 1 % Cream 15 Gm Tube) 1 appl TOPICAL BID [facility]; Protocol Last Admin: 12/15/22 20:59 Dose: 1 appl Cyanocobalamin (Cyanocobalamin (Vitamin B-12) 100 Mcg Tablet) 100 mcg PO DAILY [facility] Last Admin: 12/15/22 08:44 Dose: 100 mcg Docusate Sodium (Docusate Sodium 100 Mg Capsule) 300 mg PO DAILY PRN PRN Reason: constipation Duloxetine HCl (Duloxetine Hcl 20 Mg Capsule.Dr) 20 mg PO DAILY [facility] Last Admin: 12/15/22 08:44 Dose: 20 mg Finasteride (Finasteride 5 Mg Tablet) 5 mg PO DAILY [facility] Last Admin: 12/15/22 08:45 Dose: 5 mg Gabapentin (Gabapentin 300 Mg Capsule) 300 mg PO TID [facility] Last Admin: 12/15/22 20:59 Dose: 300 mg Glucose (Glucose Gel 15 Gm Gel..Gram.) 15 gm PO Q15M PRN; Protocol PRN Reason: per Hypoglycemia Standing Ord. Hydroxyzine HCl (Hydroxyzine Hcl 25 Mg Tablet) 25 mg PO Q6H PRN PRN Reason: Anxiety Last Admin: 12/07/22 22:31 Dose: 25 mg Hydroxyzine HCl (Hydroxyzine Hcl 25 Mg Tablet) 25 mg PO BEDTIME [facility] Last Admin: 12/15/22 21:00 Dose: 25 mg Dextrose (D10) 250 mls @ 750 mls/hr IV Q15M PRN; Protocol PRN Reason: per Hypoglycemia Standing Ord. Insulin Glargine (Insulin Glargine,Hum.Rec.Anlog 100 Unit/Ml 10 Ml Vial) 8 unit SUBCUT DAILY [facility] Last Admin: 12/15/22 08:46 Dose: 8 unit Insulin Human Lispro (Insulin Lispro 100 Unit/Ml 3 Ml Vial) 0 unit SUBCUT QIDACHS [facility]; Protocol Last Admin: 12/15/22 21:07 Dose: 2 unit Lidocaine (Lidocaine 4 % Patch Adh..Patch) 1 patch TRANSDERMA DAILY PRN; Protocol PRN Reason: muscle pain Lidocaine (Lidocaine 4 % Patch Adh..Patch) 1 patch TRANSDERMA DAILY PRN; Protocol PRN Reason: musculo/skel pain Losartan Potassium (Losartan Potassium 50 Mg Tablet) 100 mg PO DAILY [facility]; Protocol Last Admin: 12/15/22 08:45 Dose: 100 mg Magnesium Hydroxide (Milk Of Magnesia 30 Ml Oral.Susp) 30 ml PO DAILY PRN PRN Reason: Constipation Melatonin (Melatonin 3 Mg Tablet) 9 mg PO BEDTIME [facility] Last Admin: 12/15/22 21:00 Dose: 9 mg Metformin HCl (Metformin Hcl 500 Mg Tablet) 500 mg PO BIDWM [facility] Last Admin: 12/15/22 16:21 Dose: 500 mg Metoprolol Succinate (Metoprolol Succinate Er 100 Mg Tab.Er.24h) 100 mg PO DAILY [facility]; Protocol Last Admin: 12/15/22 08:44 Dose: 100 mg Mirtazapine (Mirtazapine 15 Mg Tablet) 45 mg PO BEDTIME [facility] Last Admin: 12/15/22 21:00 Dose: 45 mg Nicotine Polacrilex (Nicotine Polacrilex 2 Mg Gum) 4 mg BUCCAL Q2H PRN PRN Reason: Nicotine Cravings Omeprazole (Omeprazole 40 Mg Capsule.Dr) 40 mg PO DAILY@0630 [facility] Last Admin: 12/16/22 06:25 Dose: 40 mg Polyethylene Glycol (Polyethylene Glycol 3350 17 Gm Powd.Pack) 17 gm PO DAILY PRN PRN Reason: constipation Quetiapine Fumarate (Quetiapine Fumarate 25 Mg Tablet) 75 mg PO BEDTIME [facility] Last Admin: 12/15/22 21:00 Dose: 75 mg Salmeterol Xinafoate (Salmeterol Xinafoate 50 Mcg Blst.W.Dev) 1 puff INHALE RBID [facility] Last Admin: 12/15/22 20:59 Dose: 1 puff Tamsulosin HCl (Tamsulosin Hcl 0.4 Mg Capsule) 0.8 mg PO BEDTIME [facility] Last Admin: 12/15/22 21:01 Dose: 0.8 mg Tiotropium [place] (Tiotropium [place] 18 Mcg Cap.W.Dev) 1 puff INHALE RDAILY [facility] Last Admin: 12/15/22 08:55 Dose: Not Given Trazodone HCl (Trazodone Hcl 50 Mg Tablet) 50 mg PO BEDTIME MRX1 PRN PRN Reason: Insomnia Last Admin: 12/14/22 20:48 Dose: 50 mg Allergies Allergies Allergy/AdvReac Type Severity Reaction Status Date / Time iodine Allergy Swelling Verified 12/06/22 22:57 levofloxacin [From Levaquin] Allergy Joint Pain Verified 12/06/22 22:36 povidone-iodine Allergy Swelling Verified 12/06/22 22:57 [From Betadine] Assessment & Plan Assessment & Plan (1) Depression, major, severe recurrence: Status: Acute Code(s): F33.2 - Major depressive disorder, recurrent severe without psychotic features Assessment and Plan: 77 yo male with history of recurrent depression admitted with suicidal ideation with a plan to access firearms to kill himself. He has been struggling with medical issues, housing, difficulty navigating social needs and medical conditions due to illiteracy. His Cymbalta was discontinued due to Low Na+ but that didn't resolve after discontinuation. Plan Admit to geripsychiatry unit. CV 15 min checks Milieu therapy Collaterals Restart Cymbalta and titrate as tolerated. Patient agrees. Discharge planning. 12/08: Start GBP 100 mg TID targeting peripheral neuropathy Plan 1. Gather collateral information. 2. Continue Gabapentin 100 mg p.o. t.i.d. since he is not over-sedated. 3. Keep Cymbalta 20 mg p.o. daily, will increase it up to 30 in a couple of days. 4. Basic metabolic panel, hemoglobin A1c, CBC with differential on December 12, came back normal. 5. [facility] Reason for continued inpatient stay Substantial Risk for: inability to function, rapid decompensation and med/psych decompensation Time Spent With Patient Time: Total time managing care of this patient today __20__ minutes.
[2022-12-16] MEDS: DULoxetine HCl 20 MG CAPSULE.DR PO (08:21)
[2022-12-16] MEDS: Acetaminophen 325 MG TABLET 650 MG PO (10:43)
[2022-12-16 11:32] LABS: Glucose, Whole Blood 143 mg/dL (60-115)
[2022-12-16 16:30] LABS: Glucose, Whole Blood 227 mg/dL (60-115)
[2022-12-16 18:00] VITALS: BP 135/74; PULSE 68; RESP 18; TEMP 36.2; O2SAT 95
[2022-12-16] MEDS: QUEtiapine Fumarate 25 MG TABLET 75 MG PO (20:45)
[2022-12-16] MEDS: Melatonin 3 MG TABLET 9 MG PO (20:45)
[2022-12-16] MEDS: hydrOXYzine HCL 25 MG TABLET PO (20:46)
[2022-12-16] MEDS: Mirtazapine 15 MG TABLET 45 MG PO (20:46)
[2022-12-16] MEDS: Tamsulosin HCL 0.4 MG CAPSULE 0.8 MG PO (20:46)
[2022-12-16 21:09] LABS: Glucose, Whole Blood 167 mg/dL (60-115)
[2022-12-17] MEDS: Omeprazole 40 MG CAPSULE.DR PO (06:14)
[2022-12-17] MEDS: Metoprolol Succinate ER 100 MG TAB.ER.24H PO (08:16)
[2022-12-17] MEDS: Clopidogrel Bisulfate 75 MG TABLET PO (08:16)
[2022-12-17] MEDS: Atorvastatin Calcium 40 MG TABLET PO (08:16)
[2022-12-17] MEDS: Losartan Potassium 50 MG TABLET 100 MG PO (08:16)
[2022-12-17] MEDS: Gabapentin 300 MG CAPSULE PO (08:16)
[2022-12-17] MEDS: Finasteride 5 MG TABLET PO (08:16)
[2022-12-17] MEDS: amLODIPine Besylate 10 MG TABLET PO (08:16)
[2022-12-17] MEDS: DULoxetine HCl 20 MG CAPSULE.DR PO (08:16)
[2022-12-17] MEDS: metFORMIN HCl 500 MG TABLET PO (08:16)
[2022-12-17] MEDS: Cyanocobalamin (Vitamin B-12) 100 MCG TABLET PO (08:16)
[2022-12-17] MEDS: Insulin Glargine,Hum.rec.anlog 100 UNIT/ML 10 ML VIAL 8 UNIT SUBCUT (08:17)
--- NOTE | 2022-12-17 08:23 | PM.PSYDC ---
DS: Providers Provider Date of Service: 12/17/22 Date of admission: 12/06/22 18:13 Date of discharge: 12/17/22 Primary care physician: Unknown Physician Consults: 12/07/22 04:57 Consult to Hospitalist Routine Comment: Consulting Provider: Hospitalist Reason For Exam: OUTSIDE HOSPITAL ADMISSION HX COPD/IDDM/HTN DS: Diagnosis Discharge Diagnosis (1) Depression, major, severe recurrence: Status: Acute DS: Medications Discharge Medications Home Medications: Home Medications Medication Instructions Recorded Confirmed amlodipine benzoate 10 mg PO DAILY 12/06/22 12/06/22 clopidogrel 75 mg PO DAILY 12/06/22 12/06/22 insulin glargine 8 units subcut QAM 12/06/22 12/06/22 melatonin 9 mg PO BEDTIME PRN Sleep 12/06/22 12/06/22 metformin 500 mg PO BID 12/06/22 12/07/22 metoprolol succinate 100 mg PO DAILY 12/06/22 12/06/22 mirtazapine 45 mg BEDTIME 12/06/22 12/06/22 omeprazole 20 mg PO QAM 12/06/22 12/06/22 polyeth glycol-propylene glyc 17 g PO DAILY 12/06/22 12/06/22 quetiapine 25 mg PO BEDTIME 12/06/22 12/07/22 tamsulosin 0.8 mg PO BEDTIME 12/06/22 12/06/22 Colace 300 mg PO DAILY PRN Constipation 12/07/22 12/07/22 Cyanacobalamin 12/07/22 albuterol 90 mcg inhalation QID PRN 12/07/22 12/07/22 Shortness Of Breath atorvastatin 80 mg PO DAILY 12/07/22 12/07/22 camphor-methyl salicylate-menthol 1 patch topical DAILY PRN Pain 12/07/22 12/07/22 topical patch finasteride 5 mg PO DAILY 12/07/22 12/07/22 hydrocortisone 1 % topical cream 1 appl topical BID PRN Rash 12/07/22 12/07/22 losartan 100 mg tablet (Cozaar) 100 mg PO DAILY 12/07/22 12/07/22 olodaterol 2.5 mcg inhalation DAILY 12/07/22 12/07/22 Mental Status Exam Mental Status Exam Patient Appearance: Well Grooomed and Appropriate Patient Orientation: Person and Situation Level of Consciousness: Awake and Appropriate Patient Behavior: Appropriate and Cooperative Mood Description: Calm Affect Description: Constricted Patient Cognition Impaired: No Ability to Follow Directions: Good Speech Pattern: Clear Hallucinations: None Delusions: Not Present Thought Process: Linear Thought Content: positive for Circumstantial Judgement: Fair Data Data Completed and Pending Completed studies during hospitalization [Text1]: 12/10/22 12/10/22 12/10/22 11:15 16:18 20:52 WBC RBC Hgb Hct MCV MCH MCHC RDW Plt Count MPV Immature Gran % (Auto) Neut % (Auto) Lymph % (Auto) [place] % (Auto) Eos % (Auto) Baso % (Auto) Lymph # (Auto) [place] # (Auto) Eos # (Auto) Baso # (Auto) Abs Immat Gran (auto) Absolute Neuts (auto) Absolute Nucleated RBC Nucleated RBC % (auto) Sodium Potassium Chloride Carbon Dioxide Anion Gap BUN Creatinine Estim Creat Clear Calc Estimated GFR POC Glucose 175 H 183 H 112 Random Glucose Estimat Average Glucose Hemoglobin A1c % Calcium TSH 12/11/22 12/11/22 12/11/22 07:43 11:06 16:31 WBC RBC Hgb Hct MCV MCH MCHC RDW Plt Count MPV Immature Gran % (Auto) Neut % (Auto) Lymph % (Auto) [place] % (Auto) Eos % (Auto) Baso % (Auto) Lymph # (Auto) [place] # (Auto) Eos # (Auto) Baso # (Auto) Abs Immat Gran (auto) Absolute Neuts (auto) Absolute Nucleated RBC Nucleated RBC % (auto) Sodium Potassium Chloride Carbon Dioxide Anion Gap BUN Creatinine Estim Creat Clear Calc Estimated GFR POC Glucose 128 H 209 H 138 H Random Glucose Estimat Average Glucose Hemoglobin A1c % Calcium TSH 12/11/22 12/12/22 12/12/22 20:52 07:43 07:55 WBC 7.6 RBC 4.38 L Hgb 12.9 L Hct 38.1 L MCV 87.0 MCH 29.5 MCHC 33.9 RDW 13.3 Plt Count 155 L MPV 10.1 Immature Gran % (Auto) 0.4 Neut % (Auto) 69.8 Lymph % (Auto) 18.4 L [place] % (Auto) 7.5 Eos % (Auto) 3.8 Baso % (Auto) 0.1 Lymph # (Auto) 1.4 [place] # (Auto) 0.6 Eos # (Auto) 0.3 Baso # (Auto) 0.0 Abs Immat Gran (auto) 0.03 Absolute Neuts (auto) 5.3 Absolute Nucleated RBC 0.000 Nucleated RBC % (auto) 0.0 Sodium Potassium Chloride Carbon Dioxide Anion Gap BUN Creatinine Estim Creat Clear Calc Estimated GFR POC Glucose 165 H 132 H Random Glucose Estimat Average Glucose Hemoglobin A1c % Calcium TSH 12/12/22 12/12/22 12/12/22 07:55 07:55 11:39 WBC RBC Hgb Hct MCV MCH MCHC RDW Plt Count MPV Immature Gran % (Auto) Neut % (Auto) Lymph % (Auto) [place] % (Auto) Eos % (Auto) Baso % (Auto) Lymph # (Auto) [place] # (Auto) Eos # (Auto) Baso # (Auto) Abs Immat Gran (auto) Absolute Neuts (auto) Absolute Nucleated RBC Nucleated RBC % (auto) Sodium 131 L Potassium 4.7 Chloride 100 Carbon Dioxide 25 Anion Gap 11 L BUN 10 Creatinine 1.04 Estim Creat Clear Calc 68.7 Estimated GFR > 60 POC Glucose 175 H Random Glucose 149 H Estimat Average Glucose 183 Hemoglobin A1c % 8.0 Calcium 8.9 TSH 2.10 12/12/22 12/12/22 12/13/22 16:36 20:25 07:50 WBC RBC Hgb Hct MCV MCH MCHC RDW Plt Count MPV Immature Gran % (Auto) Neut % (Auto) Lymph % (Auto) [place] % (Auto) Eos % (Auto) Baso % (Auto) Lymph # (Auto) [place] # (Auto) Eos # (Auto) Baso # (Auto) Abs Immat Gran (auto) Absolute Neuts (auto) Absolute Nucleated RBC Nucleated RBC % (auto) Sodium Potassium Chloride Carbon Dioxide Anion Gap BUN Creatinine Estim Creat Clear Calc Estimated GFR POC Glucose 158 H 180 H 132 H Random Glucose Estimat Average Glucose Hemoglobin A1c % Calcium TSH 12/13/22 12/13/22 12/13/22 11:31 16:47 20:39 WBC RBC Hgb Hct MCV MCH MCHC RDW Plt Count MPV Immature Gran % (Auto) Neut % (Auto) Lymph % (Auto) [place] % (Auto) Eos % (Auto) Baso % (Auto) Lymph # (Auto) [place] # (Auto) Eos # (Auto) Baso # (Auto) Abs Immat Gran (auto) Absolute Neuts (auto) Absolute Nucleated RBC Nucleated RBC % (auto) Sodium Potassium Chloride Carbon Dioxide Anion Gap BUN Creatinine Estim Creat Clear Calc Estimated GFR POC Glucose 192 H 191 H 196 H Random Glucose Estimat Average Glucose Hemoglobin A1c % Calcium TSH 12/14/22 12/14/22 12/14/22 07:44 11:11 16:01 WBC RBC Hgb Hct MCV MCH MCHC RDW Plt Count MPV Immature Gran % (Auto) Neut % (Auto) Lymph % (Auto) [place] % (Auto) Eos % (Auto) Baso % (Auto) Lymph # (Auto) [place] # (Auto) Eos # (Auto) Baso # (Auto) Abs Immat Gran (auto) Absolute Neuts (auto) Absolute Nucleated RBC Nucleated RBC % (auto) Sodium Potassium Chloride Carbon Dioxide Anion Gap BUN Creatinine Estim Creat Clear Calc Estimated GFR POC Glucose 114 168 H 185 H Random Glucose Estimat Average Glucose Hemoglobin A1c % Calcium TSH 12/14/22 12/15/22 12/15/22 19:36 07:35 11:08 WBC RBC Hgb Hct MCV MCH MCHC RDW Plt Count MPV Immature Gran % (Auto) Neut % (Auto) Lymph % (Auto) [place] % (Auto) Eos % (Auto) Baso % (Auto) Lymph # (Auto) [place] # (Auto) Eos # (Auto) Baso # (Auto) Abs Immat Gran (auto) Absolute Neuts (auto) Absolute Nucleated RBC Nucleated RBC % (auto) Sodium Potassium Chloride Carbon Dioxide Anion Gap BUN Creatinine Estim Creat Clear Calc Estimated GFR POC Glucose 224 H 122 H 227 H Random Glucose Estimat Average Glucose Hemoglobin A1c % Calcium TSH 12/15/22 12/15/22 12/16/22 16:02 19:54 07:45 WBC RBC Hgb Hct MCV MCH MCHC RDW Plt Count MPV Immature Gran % (Auto) Neut % (Auto) Lymph % (Auto) [place] % (Auto) Eos % (Auto) Baso % (Auto) Lymph # (Auto) [place] # (Auto) Eos # (Auto) Baso # (Auto) Abs Immat Gran (auto) Absolute Neuts (auto) Absolute Nucleated RBC Nucleated RBC % (auto) Sodium Potassium Chloride Carbon Dioxide Anion Gap BUN Creatinine Estim Creat Clear Calc Estimated GFR POC Glucose 205 H 155 H 181 H Random Glucose Estimat Average Glucose Hemoglobin A1c % Calcium TSH 12/16/22 12/16/22 12/16/22 11:27 16:26 20:36 WBC RBC Hgb Hct MCV MCH MCHC RDW Plt Count MPV Immature Gran % (Auto) Neut % (Auto) Lymph % (Auto) [place] % (Auto) Eos % (Auto) Baso % (Auto) Lymph # (Auto) [place] # (Auto) Eos # (Auto) Baso # (Auto) Abs Immat Gran (auto) Absolute Neuts (auto) Absolute Nucleated RBC Nucleated RBC % (auto) Sodium Potassium Chloride Carbon Dioxide Anion Gap BUN Creatinine Estim Creat Clear Calc Estimated GFR POC Glucose 143 H 227 H 167 H Random Glucose Estimat Average Glucose Hemoglobin A1c % Calcium TSH DS: Summary Hospital Course Hospital Course: The patient is a 77-year-old male with a long history of major depressive disorder, follow at the [facility] in [place], referred to the emergency room for suicidal ideation. Please see the HPI note for further details on admission. On admission we review his list of medications and apparently he had tried several medications in the past. We received a phone call from Dr. Stewart at the [facility] and reported that a discontinuing taper Cymbalta of slowly since he was hyponatremic. We discussed risks, benefits, side-effects and alternatives and the patient agreed to restart Cymbalta since he was able thymic with this medication. We started on Cymbalta 20 mg p.o. daily and checked his sodium levels that came back normal. The patient was able to participate in groups, he was future oriented and since there were no safety concerns discharge planning was discussed. At the moment of the discharge the patient adamantly denies suicidal ideation. Time spent discussing smoking cessation with patient: 3 to 10 minutes Status at Discharge Functional status at discharge: independent ambulation Overall status at discharge: patient is back to baseline Time Spent with Patient Time attestation: Total time managing care of this patient today __30__ minutes. 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 Galicia - [facility] [Other] - 12/18/22 2:00 pm (Patient is scheduled for : 12/18/22 @ 2pm -- in-person ) Estefanía Hare -- [place] [Other] - 12/24/22 12:00 pm (This appointment is in-person 12/24/2022 @ 12pm ) Physician,Unknown J [Primary Care Provider] - 1 Week Discharge Medications: New losartan 50 mg Tablet 100 mg PO DAILY 30 Days Qty: 60 0RF Protocol: Hold for SBP< HOLD for SBP < : 90 quetiapine 25 mg Tablet 75 mg PO BEDTIME 30 Days Qty: 90 0RF atorvastatin 40 mg Tablet 40 mg PO DAILY 30 Days Qty: 30 0RF metformin 500 mg Tablet 500 mg PO BIDWM 30 Days Qty: 60 0RF insulin glargine [Lantus U-100 Insulin] 100 unit/mL Solution 8 unit subcut DAILY 30 Days Qty: 2.4 0RF cyanocobalamin (vitamin B-12) [Vitamin B-12] 100 mcg Tablet 100 mcg PO DAILY 30 Days Qty: 30 0RF lidocaine [Lidocaine Pain Relief] 4 % Adhesive Patch,Medicated 1 patch transdermal DAILY PRN (Reason: muscle pain) 30 Days Qty: 30 0RF Protocol: Apply to: Apply to: low back trazodone 50 mg Tablet 50 mg PO BEDTIME MRX1 PRN (Reason: Insomnia) 30 Days Qty: 30 0RF metoprolol succinate 100 mg Tablet Extended Release 24 Hr 100 mg PO DAILY 30 Days Qty: 30 0RF Protocol: Hold for SBP/HR < HOLD for SBP < : 90 HOLD for HR < : 60 melatonin 3 mg Tablet 9 mg PO BEDTIME 30 Days Qty: 90 0RF clopidogrel 75 mg Tablet 75 mg PO DAILY 30 Days Qty: 30 0RF omeprazole 40 mg Capsule,Delayed Release(Dr/Ec) 40 mg PO DAILY@0630 30 Days Qty: 30 0RF tamsulosin 0.4 mg Capsule 0.8 mg PO BEDTIME 30 Days Qty: 60 0RF amlodipine 10 mg Tablet 10 mg PO DAILY 30 Days Qty: 30 0RF Protocol: Hold for SBP< HOLD for SBP < : 90 Serevent Diskus 50 mcg/dose Blister With Device 1 puff inhalation RBID 30 Days Qty: 30 0RF gabapentin 300 mg Capsule 300 mg PO TID 30 Days Qty: 90 0RF mirtazapine 15 mg Tablet 45 mg PO BEDTIME 30 Days Qty: 90 0RF albuterol sulfate [Ventolin HFA] 90 mcg/actuation Hfa Aerosol Inhaler 2 puff inhalation RQ6H PRN (Reason: Wheezing and/or dyspnea) 30 Days Qty: 1 0RF clotrimazole 1 % Cream 1 appl topical BID 30 Days Qty: 1 0RF Protocol: Apply to: Apply to: right axilla finasteride 5 mg Tablet 5 mg PO DAILY 30 Days Qty: 30 0RF Spiriva with HandiHaler 18 mcg Capsule, W/Inhalation Device 1 puff inhalation RDAILY 30 Days Qty: 1 0RF duloxetine 20 mg Capsule,Delayed Release(Dr/Ec) 20 mg PO DAILY 30 Days Qty: 30 0RF Discontinued tamsulosin capsule 0.8 mg PO BEDTIME amlodipine benzoate 10 mg PO DAILY metoprolol succinate 100 mg PO DAILY clopidogrel 75 mg PO DAILY mirtazapine tablet 45 mg BEDTIME quetiapine 25 mg PO BEDTIME melatonin tablet 9 mg PO BEDTIME PRN (Reason: Sleep) omeprazole capsule 20 mg PO QAM Rx Instructions: 30 mins prior to breakfast polyeth glycol-propylene glyc powder 17 g PO DAILY Rx Instructions: 4 to 8 oz of beverage insulin glargine pen injector 8 units subcut QAM metformin tablet 500 mg PO BID Rx Instructions: sa form atorvastatin tablet 80 mg PO DAILY albuterol 90 mcg inhalation QID PRN (Reason: Shortness Of Breath) olodaterol inhaler 2.5 mcg inhalation DAILY Rx Instructions: inhaler with tiotrop/actuat 60d inhaler Colace capsule 300 mg PO DAILY PRN (Reason: Constipation) Cyanacobalamin tablet Rx Instructions: non-va medication prescribed by non-va provider losartan [Cozaar] 100 mg Tablet 100 mg PO DAILY Rx Instructions: losartan potassium hydrocortisone 1 % Cream 1 appl TOPICAL BID PRN (Reason: Rash) camphor-methyl salicyl-menthol Adhesive Patch,Medicated 1 patch TOPICAL DAILY PRN (Reason: Pain) Rx Instructions: apply to lower back remove after 8 to 12 hours finasteride 5 mg PO DAILY Discharge Orders: Discharge Order (Routine); Ordered 12/17/22 Ordered By: Khoi Alaniz Diet: Advance to usual diet Activity on Discharge: As tolerated Stand Alone Forms: Patient Portal Discharge page Care Plan Goals: Care plan goals achieved in this admission Health Concerns: Continue treatmenbt with PCP [facility] of [facility] Assessment: Elderly male with a long history of major depressive disorder who the complains 8 after being tapered of Cymbalta admitted for suicidal ideation at this moment, able to contract for safety future oriented and restarted on Cymbalta with no hyponatremia. Ready for being discharged and [facility].
== END 2022-12-17 10:00 | disposition home or self-care (01) | DRG 885 ==
PROVIDERS: Psychiatry & Neurology Psychiatry; Admitting Provider Psychiatry & Neurology Psychiatry; Visit Provider Psychiatry & Neurology Psychiatry
DX: F33.2 Major depressive disorder, recurrent severe without psychotic features (principal); R45.851 Suicidal ideations; G47.33 Obstructive sleep apnea (adult) (pediatric); E11.42 Type 2 diabetes mellitus with diabetic polyneuropathy; E78.5 Hyperlipidemia, unspecified; B35.4 Tinea corporis; N40.1 Benign prostatic hyperplasia with lower urinary tract symptoms; R39.14 Feeling of incomplete bladder emptying; R39.12 Poor urinary stream; K21.9 Gastro-esophageal reflux disease without esophagitis; J44.9 Chronic obstructive pulmonary disease, unspecified; I25.10 Atherosclerotic heart disease of native coronary artery without angina pectoris; Z91.199 Patient's noncompliance with other medical treatment and regimen due to unspecified reason; Z99.81 Dependence on supplemental oxygen; Z87.891 Personal history of nicotine dependence; Z79.01 Long term (current) use of anticoagulants; Z79.4 Long term (current) use of insulin; Z79.84 Long term (current) use of oral hypoglycemic drugs; Z79.899 Other long term (current) drug therapy
CPT/HCPCS: 36415; 80048; 82565; 82947; 83036; 84443; 85025

== ENCOUNTER 2023-05-20 10:27 | Outpatient (AMB) | payer OTHER, SELFPAY ==
[2023-05-20 10:49] VITALS: BP 120/84; PULSE 73; RESP 18; O2SAT 96; BMI 33.8
--- NOTE | 2023-05-20 10:49 | MHC.OFFVIS ---
Intake Vital Signs 05/20/23 10:49 Height 5 ft 10 in Weight 235 lb 8 oz BMI 33.8 BP 120/84 Blood Pressure Location Lt brachial Position Sitting Respiration 18 Pulse 73 Pulse Source Pulse Oximeter Pulse Oximetry (%) 96 Oxygen Delivery Method Room Air Intake Visit Reasons: foot pain Allergies iodine Allergy (Verified 12/06/22 22:57) Swelling levofloxacin [From Levaquin] Allergy (Verified 12/06/22 22:36) Joint Pain povidone-iodine [From Betadine] Allergy (Verified 12/06/22 22:57) Swelling HPI HPI Comments History of Present Illness Details Onel is a very pleasant 77 year old male who presents to the office today for evaluation and management of his bilateral feet pain secondary to painful diabetic neuropathy. Patient reports he has been suffering with this pain for many years. Currently takes gabapentin TID but this does not relieve the pain. Most recent A1c of 8.0 dated 12/2022. Patient reports that it hurt to walk and hurts even when he is sitting. Pain today is rated as 8/10 but at times will be 10/10. Patient ambulates with cane, states he has been offered walker and scooter in the past but does not want to lose any more of his independence. Patient is under care of application support consultant, Dr. Doe who referred him to this office for E/M. He does not recall having recent EMG testing. In terms of muscle damage condition is described as aching, hot, burning, dull, tingling, numb, throbbing, pins and needles. Pain is negatively impacting his enjoyment of life, general activity, mood, normal work, recreational activities, sleep and walking. [facility] Medical History (Updated 05/20/23 @ 11:19 by Criselda Laguna, [employer] PLATE FINISHER, EVENT SALES REPRESENTATIVE) Diabetic neuropathy BPH with obstruction/lower urinary tract symptoms Type 2 diabetes mellitus COPD (chronic obstructive pulmonary disease) TRESSA (obstructive sleep apnea) Chronic respiratory failure with hypoxia HLD (hyperlipidemia) HTN (hypertension) Social History Household Members: None Housing: Apartment Do you presently have visiting nurse or other home services: No Patient Tobacco Use Status: Former Tobacco user Tobacco use type: Cigarette e-Cigarette/Vaping Use: Never Used Second Hand Smoke Exposure: No service: Yes Sexual orientation: Straight/Heterosexual Review of Systems Const All systems reviewed & are unremarkable except as noted in HPI and below Physical Exam Vital Signs: Last Vital Signs Pulse 73 05/20/23 10:49 Resp 18 05/20/23 10:49 BP 120/84 05/20/23 10:49 Pulse Ox 96 05/20/23 10:49 Oxygen Delivery Method Room Air 05/20/23 10:49 BMI result Body Mass Index 33.8 General: awake, alert, oriented. Answers questions appropriately. Fully engaged in examination. Skin: warm, dry, intact HEENT: Normocephalic. Hearing intact. Cardiac: External chest normal in appearance. Respiratory: No cough, audible wheezing or stridor. Abdomen: without gross distension. MS: No obvious swelling or deformities. Bilateral feet: decreased sensation dorsal aspect, painful to light touch across toes and to plantar aspect. No rashes, lesions, wounds or open areas noted. Neurological: Oriented to person, place, time and situation. Thought process intact. No gait abnormalities appreciated. Psychiatric: Appropriate mood and affect. Good judgment and insight. Results Reviewed Results Reviewed: ENTERED: 12/12/22-[address]: Physician,Unknown ORDERED: Hgb A1c Test Result Flag Reference Site A1c % 8.0 % Assessment & Plan Assessment & Plan (1) Diabetic neuropathy: Code(s): E11.40 - Type 2 diabetes mellitus with diabetic neuropathy, unspecified (2) Type 2 diabetes mellitus: Code(s): E11.9 - Type 2 diabetes mellitus without complications Plan Onel is a very pleasant 77 year old male who presented to the office today for evaluation and management of his painful diabetic neuropathy. Patient reports he has been suffering with this pain for too long and needs something to ease the pain. EMG ordered. Discussed options for treatment including Qutenza, diagnostic interventional testing, peripheral nerve stimulation with Sprint, RFA and more permanent neuromodulation. Informational pamphlets provided. PA submitted for Qutenza. If no relief with Qutenza will plan for SCS with Nevro. Patient aware implantable devices require MH eval with apoloniaanatage point. Patient will review information before next visit. He is not able to read but states he has someone who can go over the pamphlets with him. All questions and concerns have been answered and patient agrees with the plan. Follow up for Qutenza, sooner if needed. Orders: Orders NE electromyogram (EMG) Today E11.40 - Type 2 diabetes mellitus with diabetic neuropathy, unspecified Coding Level of Care Code New Pt Level 4 (34439) Diagnoses Diabetic neuropathy E11.40 Type 2 diabetes mellitus E11.9
== END 2023-05-20 11:08 | disposition home or self-care (01) ==
PROVIDERS: PCP Internal Medicine; Visit Provider Registered Nurse Emergency
DX: E11.40 Type 2 diabetes mellitus with diabetic neuropathy, unspecified (principal)
CPT/HCPCS: 99204

== ENCOUNTER → 2023-05-20 10:27 | Outpatient (BNVA) | payer OTHER, SELFPAY | PROVIDERS: PCP Internal Medicine; Visit Provider Registered Nurse Emergency ==